=== PATIENT | female | born 1945 | race Caucasian/White ===

== ENCOUNTER 2016-08-31 10:24 | Emergency (ER) | payer OTHER, MEDICARE ==
[~2016-08-31 10:24] MED LIST: COUMADIN2.5 MG PO; COUMADIN5 MG PO; HYDROCORTISONE5 MG PO; LEVEMIR FL100 UNIT/M SC; LISINOPRIL10 MG PO; METOPROLOL TART25 MG PO; NEURONTIN300 MG PO; NITRO-DUR0.4 MG/HR SL; NOVOLOG PE100 UNITS/ SC; PANTOPRAZOLE SO40 MG PO; REGLAN10 MG PO; STOOL SOFTENER1 TA1; SYNTHROID125 MCG PO
--- NOTE | 2016-08-31 12:32 | DIAGNOSTIC IMAGING REPORT ---
PROCEDURE: CT ABDOMEN/PELVIS W/O CONTRAST INDICATION: Right lower quadrant pain x 3 days, initial encounter TECHNIQUE: Noncontrast axial images were obtained of the entire abdomen and pelvis with sagittal and coronal reformations. COMPARISON: CT abdomen/pelvis 10/19/2015 FINDINGS: ABDOMEN: Lung bases are clear. Mild cardiomegaly. Mild splenomegaly (13.3 cm), stable. Cholecystectomy pancreas, adrenal glands and the kidneys are normal. Mild atherosclerosis of the aorta. There is fluid in the ascending colon. PELVIS: Status post appendectomy. Hysterectomy. There is no pelvic mass, inflammatory changes or free fluid. Mild degenerative changes of the spine pill no suspicious osseous lesions IMPRESSION: 1. Fluid in the ascending colon suggestive of enterocolitis 2. Cholecystectomy, appendectomy and hysterectomy. 3. Stable mild splenomegaly 4. Results discussed with Dr. Orosco All CT scans at this facility use dose modulation, iterative reconstruction, and/or weight-based dosing when appropriate to reduce radiation dose to as low as reasonably achievable.
--- NOTE | 2016-08-31 15:14 | ED ORDER SUMMARY ---
..... Patient: SAM MEYERS OrderSheet [facility] VisitID: [id number] [address] [place] [address] 70y, F Registration Date/Time: 08/31/2016 ORDER SHEET Weight: 77.1 kg (stated) Allergies: Septra, Codeine, Zithromax, Iodine, Sulfa Antibiotics, Aredia, Avandia, Cephalexin, CONTRAST DYE, Ibuprofen, Narcotic Pain Medication, Sulfa Antibiotics GENERAL ORDERS: CBC w Diff Urgent (10:43 08/31/2016 HOShaughnessy R.N. per protocol) (Ack 10:50 LTapper) (10:54 HOShaughnessy R.N.) CMP Urgent (:08/31/2016 HOShaughnessy R.N. per protocol) (Ack 10:50 LTapper) (10:54 HOShaughnessy R.N.) PT with INR Urgent (10:08/31/2016 HOShaughnessy R.N. per protocol) (Ack 10:50 LTapper) (10:54 HOShaughnessy R.N.) Amylase Urgent (10:08/31/2016 HOShaughnessy R.N. per protocol) (Ack 10:50 LTapper) (10:54 HOShaughnessy R.N.) Lipase Urgent (10:08/31/2016 HOShaughnessy R.N. per protocol) (Ack 10:50 LTapper) (10:54 HOShaughnessy R.N.) UA-Culture if indicated Urgent (10:08/31/2016 HOShaughnessy R.N. per protocol) (Ack 10:50 LTapper) (13:09 HOShaughnessy R.N.) POC Glucose (10:08/31/2016 HOShaughnessy R.N. per protocol) (10:54 HOShaughnessy R.N.) Vitals (10:08/31/2016 HOShaughnessy R.N. per protocol) (10:54 HOShaughnessy R.N.) NPO (10:08/31/2016 HOShaughnessy R.N. per protocol) (10:54 HOShaughnessy R.N.) - (PANTS OFF PRETTY PLEASE!!!!!!!) (11:09 08/31/2016 Karime KIRBY) (Ack 11:12 LTapper) (11:32 HOShaughlynette R.N.) Lactate, Serum Urgent (11:14 08/31/2016 Karime KIRBY) (Ack 11:16 LTapper) (11:26 HOShaughharshy R.N.) EKG - ER Stat (11:19 08/31/2016 Karime KIRBY) (Ack 11:32 LTapper) (11:33 HOShaughlynette R.N.) CT Abd/Pel w Cont (Yes) (pending ) (wait for labs) Urgent (11:20 08/31/2016 Karime KIRBY) (Ack 11:32 LTapper) (Cancelled: contrast :00 Karime KIRBY) CT Abd/Pel wo Cont Urgent (12:00 08/31/2016 Karime KIRBY) (Ack 12:06 LTapper) MEDICATION ORDERS: - (D50 12.5 gm) (11:13 08/31/2016 Karime KIRBY) (11:26 HOShaughnessy R.N.) IV FLUIDS: IV Saline Lock (10:43 08/31/2016 HOShaughharshy R.N. per protocol) (10:54 HOShaughnessy R.N.) Dilaudid IV 0.5 mg + 0.5 mg (HIGH ALERT MEDICATION) (11:18 08/31/2016 Karime KIRBY) (11:38 HOShaughnessy R.N.) Zofran IV 4 mg (NOW) (11:18 08/31/2016 Karime KIRBY) (11:37 HOShaughharshy R.N.) Benadryl IV 50 mg (NOW) (14:23 08/31/2016 Karime KIRBY) (Cancelled: Other15:08 Karime KIRBY) Haldol IV 3 mg (NOW) (14:24 08/31/2016 Karime KIRBY) (Cancelled: Other15:08 Karime KIRBY) Dilaudid IV 0.5 mg (NOW) (15:09 08/31/2016 Karime KRIBY) (15:22 Jazz Chambers) ORDER SHEET NOTES: [Electronically signed by Pierre Badillo R.N. (00:40 09/01/2016)] [Electronically signed by Naeem Orosco MD (02:36 09/02/2016)] [Electronically locked/signed by Pierre Badillo R.N. (00:40 09/01/2016)]
--- NOTE | 2016-08-31 15:14 | ED NURSING NOTES ---
Clinical Report - Nurses [place] [address] [place] [address] 08/31/2016 10:25 Patient: SAM MEYERS TRIAGE Triage time 1026 AM. Chief Complaint: ABDOMINAL PAIN. Alert. No acute distress. --10:32 Pierre Badillo R.N. 10:26 08/31/16. BP: 146/64. HR: 54. RR: 16. O2 saturation: 97%. Temp: 98.6 F (oral). Pain level now: 05/25. --10:32 Pierre Badillo R.N. ( Blood Sugar:74). --10:44 Pierre Badillo R.N. 14:50 08/31/16. HR: 52. RR: 16. O2 saturation: 96%. --14:52 Pierre Badillo R.N. Weight: 77.1 kg stated. Height/Length: 66 inches Per Patient. BMI: 27.4. --10:27 Pierre Badillo R.N. Medications Levothyroxine Sodium Oral. --10:28 Pierre Badillo R.N. Lisinopril Oral. --10:28 Pierre Badillo R.N. MiraLax Oral. --10:29 Pierre Badillo R.N. Hydrocortisone Oral. --10:29 Pierre Badillo R.N. Gabapentin Oral. --10:29 Pierre Badillo R.N. Multivitamins Oral. --10:29 Pierre Badillo R.N. Nitroglycerin ER Oral. --10:29 Pierre Badillo R.N. Pantoprazole Sodium Oral. --10:30 Pierre Badillo R.N. Metoprolol Tartrate Oral. --10:30 Pierre Badillo R.N. Warfarin Sodium Oral. --10:30 Pierre Badillo R.N. Allergies Septra. --10:30 Pierre Badillo R.N. Codeine. --10:30 Pierre Badillo R.N. Zithromax. --10:31 Pierre Badillo R.N. Iodine. --10:31 Pierre Badillo R.N. Sulfa Antibiotics. --10:31 Pierre Badillo R.N. Aredia. Avandia. Cephalexin. CONTRAST DYE. Ibuprofen. Narcotic Pain Medication. Sulfa Antibiotics. --11:36 Pierre Badillo R.N. History Arrived by EMS. Historian: patient. Unaccompanied. ( Patient presents to the ED with symptoms of lower abdominal pain beginning Wednesday night worsening over the weekend.). She has had nausea, constipation and abdominal pain. 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 SOCIAL HX: Smoker- current status unknown (no). Alcohol use. (no). History of drug use. (no). FALL RISK ASSESSMENT: Fall risk assessment completed. No fall risk identified. NUTRITIONAL RISK ASSESSMENT: The nutritional risk assessment revealed no deficiencies. FUNCTIONAL ASSESSMENT: Functional assessment: no impairments noted. LEARNING NEEDS ASSESSMENT: The learning needs assessment revealed no barriers. SKIN INTEGRITY ASSESSMENT: Skin integrity risk assessment completed. No skin integrity risk identified. --10:32 Pierre Badillo R.N. PROBLEMS: Flank Pain. Hypertension. Myocardial Infarction. Heart Disease. UTI - Urinary Tract Infection. Gallstone(s). Gastroesophageal Reflux Disease. Rectal Bleed. Vomiting. Hypothyroidism. Gastritis. Anxiety Reaction. Atypical Chest Pain. Diarrhea. Abdominal Pain. Epistaxis. Pituitary adenoma. Atrial Fibrillation. Gastroenteritis. Foot Fracture. Immunizations. Brain Tumor. Diabetes Mellitus. --10:31 Pierre Badillo R.N. ADDITIONAL SURGERIES: Ankle surgery. Appendectomy. Brain surgery for tumor 2009. Cholecystectomy. Hysterectomy. Jaw surgery. Knee Surgery. Vein stripping bilateral legs. --10:31 Pierre Badillo R.N. PHYSICAL ASSESSMENT To room via stretcher. GENERAL / NEURO / PSYCH: Alert. Oriented X 4. Appears in no acute distress. HEENT: Mucous membranes are pink. RESPIRATORY: Respirations not labored. Breath sounds within normal limits. CVS: Normal sinus rhythm noted. Capillary refill less than 2 seconds. GI / : Abdominal tenderness in the lower abdomen. Guarding present. Bowel sounds within normal limits. SKIN: Skin is warm and dry. --10:32 Pierre Badillo R.N. NURSING PROGRESS NOTES Call light placed in reach. Side rails up x 1. --10:32 Pierre Badillo R.N. 10:54 08/31/2016 Site #1 started via IV in the left hand with an 20g angiocath; one attempt. Blood drawn: rainbow set. Labeled in the presence of the patient and sent to the lab. Saline lock flushed with 10 mL saline. --10:54 Pierre Badillo R.N. 11:26 08/31/2016 Dextrose 50%-Water IVP 12.5 gm given over 2 minute(s) via site #1. Allergies verified and confirmed 5 rights. IV patency established. IV site checked: no pain, redness, or swelling. IV flushed thoroughly pre- and post-medication administration. IVP given by RN. --11:26 Pierre Badillo R.N. 11:37 08/31/2016 Zofran (Ondansetron HCl) IVP 4 mg given over 2 minute(s) via site #1. Allergies verified and confirmed 5 rights. IV patency established. IV site checked: no pain, redness, or swelling. IV flushed thoroughly pre- and post-medication administration. IVP given by RN. --11:37 Pierre Badillo R.N. 11:38 08/31/2016 Dilaudid (HYDROmorphone HCl PF) IVP 0.5 mg given over 2 hour(s) via site #1. Allergies verified, confirmed 5 rights and sedative warning given to the patient. IV patency established. IV site checked: no pain, redness, or swelling. IV flushed thoroughly pre- and post-medication administration. IVP given by RN. --11:38 Pierre Badillo R.N. The patient is calm and resting quietly. --11:41 Pierre Badillo R.N. 11:40 08/31/16. BP: 153/67. HR: 52. RR: 16. O2 saturation: 97%. Temp: 98.5 F. Pain level now: 05/25. --11:41 Pierre Badillo R.N. Point of care testing: performed by tech. Glucose: 152. Result shown to the RN. --12:01 Amaya Wisdom EKG time: (11:31 AM). EKG was performed by a tech and shown to the ED physician. --12:13 Amaya Wisdom ( Patient able to stand and transfer to bedside commode. Urine sample obtained.). --13:10 Pierre Badillo R.N. 14:18 08/31/16. BP: 144/51 taken on the left arm, via an automated monitor, while lying. HR: 60. RR: 16. O2 saturation: 97%. Temp: 97.9 F (oral). Pain level now: 05/25. --14:19 Pierre Badillo R.N. The patient is calm and resting quietly. Overall patient status is the same- she states feels the same. Call light placed in reach. Side rails up x 1. Bed placed in lowest position. Brakes of bed on. --14:19 Pierre Badillo R.N. 14:50 08/31/2016 Dilaudid (HYDROmorphone HCl PF) IVP 0.5 mg given over 2 minute(s) via site #1. Allergies verified, confirmed 5 rights and sedative warning given to the patient. IV patency established. IV site checked: no pain, redness, or swelling. IV flushed thoroughly pre- and post-medication administration. IVP given by RN. --14:50 Pierre Badillo R.N. ( Patient states that she thinks that she her doctor may have told her that she should not taken Benadryl. Patient states that she is not sure if her doctor told her to avoid Benadryl or is it was another medication and does not know why her doctor may have told her to avoid Benadryl. Physician informed and is at the bedside speaking with patient.). --15:08 Pierre Badillo R.N. 15:21 08/31/2016 Dilaudid (HYDROmorphone HCl PF) IVP 0.5 mg given over 2 minute(s) via site #1. Allergies verified, confirmed 5 rights and sedative warning given to the patient. IV patency established. IV site checked: no pain, redness, or swelling. IV flushed thoroughly pre- and post-medication administration. IVP given by RN. --15:22 Pierre Badillo R.N. Pipe Line Repairer provided for the rectal exam by the physician. ( Rectal exam done by Dr. Orosco). --15:58 YifanCharlie daia. DISPOSITION / DISCHARGE 15:22 08/31/16. BP: 118/49. HR: 49. RR: 16. O2 saturation: 94%. Temp: 98.2 F (oral). Pain level now: 8/10. --15:22 Pierre Badillo R.N. 15:49 08/31/2016 Site #1 removed upon discharge. Catheter intact. Bandaid applied. --15:49 Pierre Badillo R.N. Reviewed medication(s) side effects, precautions, dosing and course information. Prescription(s) given to the patient. Reviewed fever care instructions. Patient verbalized understanding. Written instructions provided in Turkmen. The patient was discharged home and accompanied by spouse. She left the Emergency Department ambulatory and via private vehicle. Spouse driving. --15:49 Pierre Badillo R.N. Departure time: 1549 PM. --15:49 Pierre Badillo R.N. Locked/Released at 09/01/2016 0:40 by Pierre Badillo R.N.
--- NOTE | 2016-08-31 15:14 | ED ORDER SUMMARY ---
..... Patient: SAM MEYERS OrderSheet [facility] VisitID: [id number] [address] [place] [address] 70y, F Registration Date/Time: 08/31/2016 ORDER SHEET Weight: 77.1 kg (stated) Allergies: Septra, Codeine, Zithromax, Iodine, Sulfa Antibiotics, Aredia, Avandia, Cephalexin, CONTRAST DYE, Ibuprofen, Narcotic Pain Medication, Sulfa Antibiotics GENERAL ORDERS: CBC w Diff Urgent (10:43 08/31/2016 HOShaughnessy R.N. per protocol) (Ack 10:50 LTapper) (10:54 HOShaughnessy R.N.) CMP Urgent (:08/31/2016 HOShaughnessy R.N. per protocol) (Ack 10:50 LTapper) (10:54 HOShaughnessy R.N.) PT with INR Urgent (10:08/31/2016 HOShaughnessy R.N. per protocol) (Ack 10:50 LTapper) (10:54 HOShaughnessy R.N.) Amylase Urgent (10:08/31/2016 HOShaughnessy R.N. per protocol) (Ack 10:50 LTapper) (10:54 HOShaughnessy R.N.) Lipase Urgent (10:08/31/2016 HOShaughnessy R.N. per protocol) (Ack 10:50 LTapper) (10:54 HOShaughnessy R.N.) UA-Culture if indicated Urgent (10:08/31/2016 HOShaughnessy R.N. per protocol) (Ack 10:50 LTapper) (13:09 HOShaughnessy R.N.) POC Glucose (10:08/31/2016 HOShaughnessy R.N. per protocol) (10:54 HOShaughnessy R.N.) Vitals (10:08/31/2016 HOShaughnessy R.N. per protocol) (10:54 HOShaughnessy R.N.) NPO (10:08/31/2016 HOShaughnessy R.N. per protocol) (10:54 HOShaughnessy R.N.) - (PANTS OFF PRETTY PLEASE!!!!!!!) (11:09 08/31/2016 Karime KIRBY) (Ack 11:12 LTapper) (11:32 HOShaughlynette R.N.) Lactate, Serum Urgent (11:14 08/31/2016 Karime KIRBY) (Ack 11:16 LTapper) (11:26 HOShaughharshy R.N.) EKG - ER Stat (11:19 08/31/2016 Karime KIRBY) (Ack 11:32 LTapper) (11:33 HOShaughlynette R.N.) CT Abd/Pel w Cont (Yes) (pending ) (wait for labs) Urgent (11:20 08/31/2016 Kraime KIRBY) (Ack 11:32 LTapper) (Cancelled: contrast [id number] Karime KIRBY) CT Abd/Pel wo Cont Urgent (12:00 08/31/2016 Karime KIRBY) (Ack 12:06 LTapper) MEDICATION ORDERS: - (D50 12.5 gm) (11:13 08/31/2016 Karime KIRBY) (11:26 HOShaughnessy R.N.) IV FLUIDS: IV Saline Lock (10:43 08/31/2016 HOShaughharshy R.N. per protocol) (10:54 HOShaughnessy R.N.) Dilaudid IV 0.5 mg + 0.5 mg (HIGH ALERT MEDICATION) (11:18 08/31/2016 Karime KIRBY) (11:38 HOShaughnessy R.N.) Zofran IV 4 mg (NOW) (11:18 08/31/2016 Karime KIRBY) (11:37 HOShaughharshy R.N.) Benadryl IV 50 mg (NOW) (14:23 08/31/2016 Karime KIRBY) (Cancelled: Other15:08 Karime KIRBY) Haldol IV 3 mg (NOW) (14:24 08/31/2016 Karime KIRBY) (Cancelled: Other15:08 Karime KIRBY) Dilaudid IV 0.5 mg (NOW) (15:09 08/31/2016 Karime KIRBY) (15:22 Jzaz Chambers) ORDER SHEET NOTES: [Electronically signed by Pierre Badillo R.N. (00:40 09/01/2016)] [Electronically signed by Naeem Orosco MD (02:36 09/02/2016)] [Electronically locked/signed by Pierre Badillo R.N. (00:40 09/01/2016)]
--- NOTE | 2016-08-31 15:14 | ED CLINICAL REPORT ---
Clinical Report - Physicians/Mid Levels [facility] [address] [place] [address] 08/31/2016 10:25 Patient: SAM MEYERS Time Seen: 11:10. Arrived- By private vehicle. HISTORY OF PRESENT ILLNESS Chief Complaint: ABDOMINAL PAIN. At its maximum, severity described as severe. When seen in the E.D., severity described as moderate. Modifying factors. Not worsened by anything. Not relieved by anything. This started 5 days ago and is still present. It was gradual in onset and has been constant. It is described as "pain" and it is described as located in the right pelvis and in the pelvic area. The patient has had nausea. No vomiting. Similar symptoms previously: Several times. ( Unknown cause). REVIEW OF SYSTEMS The patient has had constipation. No fever, double vision, ear pain, mouth sores or chest pain. No cough, difficulty breathing or difficulty with urination. PAST HISTORY PCP: Chente MARTE IlPROBLEMS: Flank Pain. Hypertension. Myocardial Infarction. Heart Disease. UTI - Urinary Tract Infection. Gallstone(s). Gastroesophageal Reflux Disease. Rectal Bleed. Vomiting. Hypothyroidism. Gastritis. Anxiety Reaction. Atypical Chest Pain. Diarrhea. Abdominal Pain. Epistaxis. Pituitary adenoma. Atrial Fibrillation. Gastroenteritis. Foot Fracture. Immunizations. Brain Tumor. Diabetes Mellitus. --10:31 Pierre Badillo, RMauroN. ADDITIONAL SURGERIES: Ankle surgery. Appendectomy. Brain surgery for tumor 2009. Cholecystectomy. Hysterectomy. Jaw surgery. Knee Surgery. Vein stripping bilateral legs. SOCIAL HISTORY Never smoker. ADDITIONAL NOTES The nursing notes have been reviewed. PHYSICAL EXAM Vital Signs: 08/31/2016 15:22 BP: 118/49. HR: 49. RR: 16. O2 saturation: 94%. Temp: 98.2 F. Pain level now: 03/25. 08/31/2016 14:50 HR: 52. RR: 16. O2 saturation: 96%. 08/31/2016 14:18 BP: 144/51. HR: 60. RR: 16. O2 saturation: 97%. Temp: 97.9 F. Pain level now: 05/25. 08/31/2016 11:40 BP: 153/67. HR: 52. RR: 16. O2 saturation: 97%. Temp: 98.5 F. Pain level now: 05/25. 08/31/2016 10:26 BP: 146/64. HR: 54. RR: 16. O2 saturation: 97%. Temp: 98.6 F. Pain level now: 05/25. Appearance: Alert. Patient in mild distress. Eyes: Pupils equal, round and reactive to light. Eyes normal inspection. ENT: Pharynx normal. CVS: Heart sounds normal. Respiratory: No respiratory distress. Breath sounds normal. Abdomen: Mild tenderness in the right lower quadrant. Guarding present. Bowel sounds normal. No rebound tenderness. (No hernias). Back: No CVA tenderness. Skin: No rash. Extremities: Extremities exhibit normal ROM. No lower extremity edema. Neuro: No alteration in mental status. LABS, X-RAYS, AND EKG Abdominal CT: PROCEDURE: CT ABDOMEN/PELVIS W/O CONTRAST INDICATION: Right lower quadrant pain x 3 days, initial encounter TECHNIQUE: Noncontrast axial images were obtained of the entire abdomen and pelvis with sagittal and coronal reformations. COMPARISON: CT abdomen/pelvis 10/19/2015 FINDINGS: ABDOMEN: Lung bases are clear. Mild cardiomegaly. Mild splenomegaly (13.3 cm), stable. Cholecystectomy pancreas, adrenal glands and the kidneys are normal. Mild atherosclerosis of the aorta. There is fluid in the ascending colon. PELVIS: Status post appendectomy. Hysterectomy. There is no pelvic mass, inflammatory changes or free fluid. Mild degenerative changes of the spine pill no suspicious osseous lesions IMPRESSION: 1. Fluid in the ascending colon suggestive of enterocolitis 2. Cholecystectomy, appendectomy and hysterectomy. 3. Stable mild splenomegaly 4. Results discussed with Dr. Orosco All CT scans at this facility use dose modulation, iterative reconstruction, and/or weight-based dosing when appropriate to reduce radiation dose to as low as reasonably achievable. Laboratory Tests: UA-Culture if indicated: (BILLIE: 08/31/2016 13:06) ( MsgRcvd 08/31/2016 13:40) Final results Test Result Flag Units (Reference) URINE COLOR YELLOW URINE APPEARANCE CLEAR URINE GLUCOSE NEGATIVE (NEGATIVE) URINE BILIRUBIN NEGATIVE (NEGATIVE) URINE KETONE NEGATIVE (NEGATIVE) URINE SPECIFIC GRAVITY 1.015 (1.010-1.030) URINE PH 6.0 (5.0-8.0) URINE PROTEIN NEGATIVE (NEGATIVE) URINE UROBILINOGEN 0.2 EU/dL (0.2-1.0) URINE NITRITE NEGATIVE (NEGATIVE) URINE BLOOD NEGATIVE (NEGATIVE) URINE LEUK ESTERASE NEGATIVE (NEGATIVE) URINE RBC NONE SEEN rbc/hpf (0-1) URINE WBC NONE SEEN wbc/hpf (0-1) URINE EPITHELIAL CELLS 0-1 EPI/hpf (0-5) URINE BACTERIA NONE SEEN (NONE SEEN) URINE COMMENT CULT NOT INDICATED URINE CULTURES ARE SET-UP BASED ON THE FOLLOWING CRITERIA:POSITIVE NITRITEPOSITIVE LEUKOCYTE ESTERASEGREATER THAN 10 WHITE BLOOD CELLSMODERATE (2+) OR GREATER BACTERIA CBC w Diff: (BILLIE: 08/31/2016 10:52) ( [facility] 08/31/2016 11:13) Final results Test Result Flag Units (Reference) WHITE BLOOD COUNT 9.5 K/uL (4.5-11.5) RED BLOOD COUNT 4.81 M/uL (4.00-5.20) HEMOGLOBIN 15.6 gm/dL (12.0-16.0) HEMATOCRIT 46.7 H % (36.0-46.0) MEAN CELL VOLUME 97 fL (80-100) MEAN CORPUSCULAR HGB 33 pg (26-34) MEAN CORPUSCULAR HGB CONC 33 g/dL (31-37) RED CELL DISTRIBUTION WIDTH 13.1 % (11.6-14.8) PLATELET COUNT 221 K/uL (150-400) LYMPH % 14.3 L % (25-40) MONO % 2.3 L % (3-14) GRANULOCYTE % 83.4 (53-90) PT with INR: (BILLIE: 08/31/2016 10:52) ( [facility] 08/31/2016 11:15) Final results Test Result Flag Units (Reference) INR 1.7 H (0.8-1.2) Low Intensity Therapy: INR 1.5-2.0 PT range 18.5-23.1Mod.Intensity Therapy: INR 2.0-3.0 PT range 23.1-31.5High Intensity Therapy: INR 2.5-3.5 PT range 27.4-35.5High Intensity Therapy 2: INR 3.0-4.0 PT range 31.5-39.3 Lactate, Serum: (BILLIE: 08/31/2016 11:24) ( CtgRcvd 08/31/2016 12:02) Final results Test Result Flag Units (Reference) LACTIC ACID 0.8 mmol/L (0.4-2.0) CMP: (BILLIE: 08/31/2016 10:52) ( MsgRcvd 08/31/2016 11:24) Final results Test Result Flag Units (Reference) GLUCOSE 91 mg/dL (70-110) BUN 19 H mg/dL (7-18) CREATININE 1.0 mg/dL (0.6-1.3) Estimated GFR 58.43 mL/min Estimated GFR- >60 mL/min Note: Persistent reduction over 3 months in eGFR<60 mL/min/1.73 m2 defines CKD. Patients with eGFR values>=60 mL/min/1.73 m2 may also have CKD if evidence ofpersistent proteinuria. Additional information may be foundat www.kidney.org. SODIUM 141 mmol/L (136-145) POTASSIUM 3.6 mmol/L (3.5-5.1) CHLORIDE 106 mmol/L (98-107) CARBON DIOXIDE 29 mmol/L (21-32) CALCIUM 8.0 L mg/dL (8.5-10.1) TOTAL PROTEIN 7.0 g/dL (6.4-8.2) ALBUMIN 3.0 L g/dL (3.3-5.0) BILIRUBIN, TOTAL 0.7 mg/dL (0.0-1.0) ALKALINE PHOSPHATASE 70 U/L (46-116) AST (SGOT) 33 U/L (15-37) ALT (SGPT) 29 U/L (12-78) LIPASE 140 U/L (73-393) AMYLASE 32 U/L (25-115) . PROGRESS AND PROCEDURES Course of Care: Low normal blood sugar treated with dextrose IV. 14:13 08/31/16. Labs and CT Normal. Still quite tender. NSR 14:22 08/31/16. Pt given Dilaudid and Zofran with fair relief relief. The patient does not appear to have an acute surgical abdomen. The cause of her pain is unclear. A follow-up in 12 hours if needed for unrelieved pain is the appropriate next step. Disposition: Discharged. Condition: stable. CLINICAL IMPRESSION Acute abdominal pain of unknown cause. INSTRUCTIONS (RECHECK IN 12 OURS IF PAIN OR VOMITING PERSISTS.). Prescription Medications: Zofran 4 mg: Take 1 orally every six hours as needed for nausea/vomiting. Dispense ten (10). No refills. Substitution is permissible. Oxycodone/APAP 5 mg/325 mg: take 1 tablet orally every 4 hours as needed for pain. Dispense five (5). Follow-up: Follow up with doctor SOLORZANO in three. Call for an appointment. Understanding of the discharge instructions verbalized by patient. (Electronically signed by Naeem Orosco MD 09/02/2016 2:36)
--- NOTE | 2016-09-02 02:37 | ED MAR SUMMARY ---
..... Medication Administration Record [facility] [address] [facility] [place] [address] Patient: SAM MEYERS Visit ID: [id number] 70y, F Weight: 77.1 kg Height/Length: 66 in BMI: 27.4 ALLERGIES: Sulfa Antibiotics, Iodine, Zithromax, Codeine, Septra, Aredia, Avandia, Cephalexin, CONTRAST DYE, Ibuprofen, Narcotic Pain Medication, Sulfa Antibiotics Given 11:26 08/31/2016 Pierre Badillo R.N. Medication Administered: DEXTROSE 50%-WATER [IVP], Dose: 12.5 gm IVP over 2 minute(s), Site: #1 left hand. Medication Ordered: - (D50 12.5 gm). Given 11:37 08/31/2016 Pierre Badillo R.N. Medication Administered: ZOFRAN [IVP] (ONDANSETRON HCL), Dose: 4 mg IVP over 2 minute(s), Site: #1 left hand. Medication Ordered: Zofran IV 4 mg (NOW). Given 11:38 08/31/2016 Pierre Badillo R.N. Medication Administered: DILAUDID [IVP] (HYDROMORPHONE HCL PF), Dose: 0.5 mg IVP over 2 hour(s), Site: #1 left hand. Medication Ordered: Dilaudid IV 0.5 mg + 0.5 mg (HIGH ALERT MEDICATION). Given 14:50 08/31/2016 Pierre Badillo R.N. Medication Administered: DILAUDID [IVP] (HYDROMORPHONE HCL PF), Dose: 0.5 mg IVP over 2 minute(s), Site: #1 left hand. Medication Ordered: Dilaudid IV 0.5 mg + 0.5 mg (HIGH ALERT MEDICATION). Given 15:21 08/31/2016 Pierre Badillo R.N. Medication Administered: DILAUDID [IVP] (HYDROMORPHONE HCL PF), Dose: 0.5 mg IVP over 2 minute(s), Site: #1 left hand. Medication Ordered: Dilaudid IV 0.5 mg (NOW).
--- NOTE | 2016-09-02 02:37 | ED MED RECONCILIATION SUMMARY ---
Patient: SAM MEYERS Medication Reconciliation Report [facility] VisitID: [id number] [address] [place] [address] 70y, F Registration Date/Time: 08/31/2016 Weight: 77.1 kg Height/Length: 66 in. BMI: 27.4 ALLERGIES: Aredia, Avandia, Cephalexin, Codeine, CONTRAST DYE, Ibuprofen, Iodine, Narcotic Pain Medication, Septra, Sulfa Antibiotics, Sulfa Antibiotics, Zithromax The patient's Home Medications are listed below: THE FOLLOWING MEDICATIONS NEED TO BE RECONCILED: Gabapentin Oral Hydrocortisone Oral Levothyroxine Sodium Oral Lisinopril Oral Metoprolol Tartrate Oral MiraLax Oral Multivitamins Oral Nitroglycerin ER Oral Pantoprazole Sodium Oral Warfarin Sodium Oral The source(s) of the original Home Medication information: Not obtained. The following Medications were given to the patient in the Emergency Department: Dextrose 50%-Water [IVP] IVP 12.5 gm, administered: 08/31/2016 11:26:00 AM Zofran [IVP] IVP 4 mg, administered: 08/31/2016 11:37:00 AM Dilaudid [IVP] IVP 0.5 mg, administered: 08/31/2016 11:38:00 AM Dilaudid [IVP] IVP 0.5 mg, administered: 08/31/2016 2:50:00 PM Dilaudid [IVP] IVP 0.5 mg, administered: 08/31/2016 3:21:00 PM The following Medications were prescribed to the patient: Zofran 4 mg: Take 1 orally every six hours as needed for nausea/vomiting. Dispense ten (10). No refills. Substitution is permissible. -- Naeem Orosco MD Oxycodone/APAP 5 mg/325 mg: take 1 tablet orally every 4 hours as needed for pain. Dispense five (5). -- Naeem Orosco MD
--- NOTE | 2016-09-02 02:37 | ED MAR SUMMARY ---
..... Medication Administration Record [facility] [address] [facility] [place] [address] Patient: SAM MEYERS Visit ID: [id number] 70y, F Weight: 77.1 kg Height/Length: 66 in BMI: 27.4 ALLERGIES: Sulfa Antibiotics, Iodine, Zithromax, Codeine, Septra, Aredia, Avandia, Cephalexin, CONTRAST DYE, Ibuprofen, Narcotic Pain Medication, Sulfa Antibiotics Given 11:26 08/31/2016 Pierre Badillo R.N. Medication Administered: DEXTROSE 50%-WATER [IVP], Dose: 12.5 gm IVP over 2 minute(s), Site: #1 left hand. Medication Ordered: - (D50 12.5 gm). Given 11:37 08/31/2016 Pierre Badillo R.N. Medication Administered: ZOFRAN [IVP] (ONDANSETRON HCL), Dose: 4 mg IVP over 2 minute(s), Site: #1 left hand. Medication Ordered: Zofran IV 4 mg (NOW). Given 11:38 08/31/2016 Pierre Badillo R.N. Medication Administered: DILAUDID [IVP] (HYDROMORPHONE HCL PF), Dose: 0.5 mg IVP over 2 hour(s), Site: #1 left hand. Medication Ordered: Dilaudid IV 0.5 mg + 0.5 mg (HIGH ALERT MEDICATION). Given 14:50 08/31/2016 Pierre Badillo R.N. Medication Administered: DILAUDID [IVP] (HYDROMORPHONE HCL PF), Dose: 0.5 mg IVP over 2 minute(s), Site: #1 left hand. Medication Ordered: Dilaudid IV 0.5 mg + 0.5 mg (HIGH ALERT MEDICATION). Given 15:21 08/31/2016 Pierre Badillo R.N. Medication Administered: DILAUDID [IVP] (HYDROMORPHONE HCL PF), Dose: 0.5 mg IVP over 2 minute(s), Site: #1 left hand. Medication Ordered: Dilaudid IV 0.5 mg (NOW).
--- NOTE | 2016-09-02 02:37 | ED MED RECONCILIATION SUMMARY ---
Patient: SAM MEYERS Medication Reconciliation Report [facility] VisitID: [id number] [address] [place] [address] 70y, F Registration Date/Time: 08/31/2016 Weight: 77.1 kg Height/Length: 66 in. BMI: 27.4 ALLERGIES: Aredia, Avandia, Cephalexin, Codeine, CONTRAST DYE, Ibuprofen, Iodine, Narcotic Pain Medication, Septra, Sulfa Antibiotics, Sulfa Antibiotics, Zithromax The patient's Home Medications are listed below: THE FOLLOWING MEDICATIONS NEED TO BE RECONCILED: Gabapentin Oral Hydrocortisone Oral Levothyroxine Sodium Oral Lisinopril Oral Metoprolol Tartrate Oral MiraLax Oral Multivitamins Oral Nitroglycerin ER Oral Pantoprazole Sodium Oral Warfarin Sodium Oral The source(s) of the original Home Medication information: Not obtained. The following Medications were given to the patient in the Emergency Department: Dextrose 50%-Water [IVP] IVP 12.5 gm, administered: 08/31/2016 11:26:00 AM Zofran [IVP] IVP 4 mg, administered: 08/31/2016 11:37:00 AM Dilaudid [IVP] IVP 0.5 mg, administered: 08/31/2016 11:38:00 AM Dilaudid [IVP] IVP 0.5 mg, administered: 08/31/2016 2:50:00 PM Dilaudid [IVP] IVP 0.5 mg, administered: 08/31/2016 3:21:00 PM The following Medications were prescribed to the patient: Zofran 4 mg: Take 1 orally every six hours as needed for nausea/vomiting. Dispense ten (10). No refills. Substitution is permissible. -- Naeem Orosco MD Oxycodone/APAP 5 mg/325 mg: take 1 tablet orally every 4 hours as needed for pain. Dispense five (5). -- Naeem Orosco MD
--- NOTE | 2016-09-02 02:37 | ED DISCHARGE INSTRUCTIONS ---
Patient: SAM MEYERS General Instructions [facility] VisitID: [id number] [address] [place] [address] 70y, F Registration Date/Time: 08/31/2016 Acute abdominal pain of unknown cause. INSTRUCTIONS (RECHECK IN 12 OURS IF PAIN OR VOMITING PERSISTS.). Prescription Medications: Zofran 4 mg: Take 1 orally every six hours as needed for nausea/vomiting. Dispense ten (10). No refills. Substitution is permissible. Oxycodone/APAP 5 mg/325 mg: take 1 tablet orally every 4 hours as needed for pain. Dispense five (5). Follow-up: Follow up with doctor SOLORZANO in three. Call for an appointment. Understanding of the discharge instructions verbalized by patient. ADDITIONAL INFORMATION Abdominal Pain, Unknown Cause (Female) The exact cause of your abdominal (stomach) pain is not certain. This does not mean that this is something to worry about, or the right tests were not done. Everyone likes to know the exact cause of the problem, but sometimes with abdominal pain, there is no clear-cut cause, and this could be a good thing. The good news is that your symptoms can be treated, and you will feel better. Your condition does not seem serious now; however, sometimes the signs of a serious problem may take more time to appear. For this reason,it is important for you to watch for any new symptoms, problems,or worsening of your condition. Over the next few days, the abdominal pain may come and go, or be continuous. Other common symptoms can include nausea and vomiting. Sometimes it can be difficult to tell if you feel nauseous, you may just feel bad and not associate that feeling with nausea. Constipation, diarrhea, and a fever may go along with the pain. The pain may continue even if treated correctly over the following days. Depending on how things go, sometimes the cause can become clear and may require further or different treatment. Additional evaluations, medications, or tests may be needed. Home care Your health care provider may prescribe medications for pain, symptoms, or an infection. Follow the health care provider's instructions for taking these medications. General care Rest until your next exam. No strenuous activities. Try to find positions that ease discomfort. A small pillow placed on the abdomen may help relieve pain. Something warm on your abdomen (such as a heating pad) may help, but be careful not to burn yourself. Diet Do not force yourself to eat, especially if having cramps, vomiting, or diarrhea. Water is important so you do not get dehydrated. Soup may also be good. Sports drinks may also help, especially if they are not too acidic. Make sure you don't drink sugary drinks as this can make things worse. Take liquids in small amounts. Do not guzzle them. Caffeine sometimes makes the pain and cramping worse. Avoid dairy products if you have vomiting or diarrhea. Don't eat large amounts at a time. Wait a few minutes between bites. Eat a diet low in fiber (called a low-residue diet). Foods allowed include refined breads, white rice, fruit and vegetable juices without pulp, tender meats. These foods will pass more easily through the intestine. Avoid whole-grain foods, whole fruits and vegetables, meats, seeds and nuts, fried or fatty foods, dairy, alcohol and spicy foods until your symptoms go away. Follow-up care Follow up with your health care provider as instructed, or if your pain does not begin to improve in the next 24 hours. When to seek medical care Seek prompt medical care if any of the following occur: Pain gets worse or moves to the right lower abdomen New or worsening vomiting or diarrhea Swelling of the abdomen Unable to pass stool for more than three days Fever of 100.4F (38C) or higher, or as directed by your healthcare provider. Blood in vomit or bowel movements (dark red or black color) Jaundice (yellow color of eyes and skin) Weakness, dizziness Chest, arm, back, neck or jaw pain Unexpected vaginal bleeding or missed period Call 911 Call emergency services if any of the following occur: Trouble breathing Confusion Fainting or loss of consciousness Rapid heart rate Seizure You have been given the following additional information: Abdominal Pain, Unknown Cause, (Female) (Electronically signed by Naeem Orosco MD 09/02/2016 2:36)
== END 2016-08-31 16:21 | disposition home or self-care (01) ==
LOC: ED SRH 10:24
DX: R10.9 Unspecified abdominal pain (principal); I11.9 Hypertensive heart disease without heart failure; I51.9 Heart disease, unspecified; E11.9 Type 2 diabetes mellitus without complications; K21.9 Gastro-esophageal reflux disease without esophagitis; Z79.01 Long term (current) use of anticoagulants; Z85.841 Personal history of malignant neoplasm of brain; Z85.858 Personal history of malignant neoplasm of other endocrine glands; Z90.49 Acquired absence of other specified parts of digestive tract; Z90.710 Acquired absence of both cervix and uterus
CPT/HCPCS: 90004; 90100; 92031; 92235; 92530; 94060; 95059

== ENCOUNTER 2016-09-01 09:53 | Emergency (ER) | payer OTHER, MEDICARE ==
--- NOTE | 2016-09-01 11:11 | ED NURSING NOTES ---
Clinical Report - Nurses [facility] [address] [place] [address] 09/01/2016 9:53 [id number] TRI[facility] Triage time 10:12. Acuity: LEVEL 3. Chief Complaint: ABDOMINAL PAIN and (Seen here yesterday for the same.). Alert. No acute distress. SEPSIS SCREEN: Sepsis Screen: negative. Negative (no infection suspected/documented). EUGENIO COMA SCORE: Eugenio Coma Scale: 15- eyes open spontaneously (4); best verbal response- oriented x 4 (5); best motor response- obeys commands (6). --10:28 Sana Albrecht R.N. 10:12 09/01/16. BP: 114/58. HR: 56. RR: 16. O2 saturation: 99%. Temp: 97.5 F. Pain level now: 05/25. --10:28 Sana Albrecht R.N. 10:12 09/01/16. BP: 114/58. HR: 56. RR: 16. O2 saturation: 99%. Temp: 97.5 F. Pain level now: 05/25. --10:29 Sana Albrecht R.N. Weight: 80.7 kg stated. Height/Length: 66 inches Per Patient. BMI: 28.7. --10:23 Sana Albrecht R.N. Medications Gabapentin Oral. Hydrocortisone Oral. Levothyroxine Sodium Oral. Lisinopril Oral. Metoprolol Tartrate Oral. MiraLax Oral. Multivitamins Oral. Nitroglycerin ER Oral. Pantoprazole Sodium Oral. Warfarin Sodium Oral. --10:12 Sana Albrecht R.N. Percocet 5mg prn. --10:27 Sana Albrecht R.N. Zofran 4mg prn. --10:28 Sana Albrecht R.N. Medication/allergy information source: the patient. --10:28 Sana Albrecht R.N. Allergies Aredia. Avandia. Cephalexin. Codeine. CONTRAST DYE. --10:12 Sana Albrecht R.N. Ibuprofen. Iodine. Narcotic Pain Medication. Septra. Sulfa Antibiotics. Sulfa Antibiotics. Zithromax. --10:12 Sana Albrecht R.N. History Arrived by private vehicle. Historian: patient and family. This is a recurrent problem. (since wednesday). She has had abdominal pain. The pain is described as located in the RLQ. Last oral intake by patient was breakfast today. Treatment TOOL PLANNER: None. PAST MEDICAL HX: Immunizations: status is unknown. SOCIAL HX: Never smoker. No alcohol use or drug use. No recent travel. No known contact with a sick individual. FALL RISK ASSESSMENT: Fall risk assessment completed. No fall risk identified. NUTRITIONAL RISK ASSESSMENT: The nutritional risk assessment revealed no deficiencies. FUNCTIONAL ASSESSMENT: Functional assessment: no impairments noted. LEARNING NEEDS ASSESSMENT: The learning needs assessment revealed no barriers. SKIN INTEGRITY ASSESSMENT: Skin integrity risk assessment completed. No skin integrity risk identified. --10:28 Sana Albrecht R.N. PROBLEMS: Flank Pain. Hypertension. Myocardial Infarction. Heart Disease. UTI - Urinary Tract Infection. Gallstone(s). Gastroesophageal Reflux Disease. Rectal Bleed. Vomiting. Hypothyroidism. Gastritis. Anxiety Reaction. Atypical Chest Pain. Diarrhea. Abdominal Pain. Epistaxis. Pituitary adenoma. Atrial Fibrillation. Gastroenteritis. Foot Fracture. Immunizations. Brain Tumor. Diabetes Mellitus. --10:13 Sana Albrecht R.N. ADDITIONAL SURGERIES: Ankle surgery. Appendectomy. Brain surgery for tumor 2009. Cholecystectomy. Hysterectomy. Jaw surgery. Knee Surgery. Vein stripping bilateral legs. --10:13 Sana Albrecht R.N. Interventions ID band on patient. To room. --10:28 Sana Albrecht R.N. PHYSICAL ASSESSMENT To room via wheelchair. Patient gowned. GENERAL / NEURO / PSYCH: Alert. Oriented X 4. Appears in no acute distress. HEENT: Mucous membranes are pink. RESPIRATORY: Respirations not labored. CVS: Capillary refill less than 2 seconds. GI / : Abdominal tenderness in the right lower quadrant. SKIN: Skin is warm and dry. --10:29 Sana Albrecht R.N. NURSING PROGRESS NOTES Pulse oximeter and NIBP monitor placed on patient; monitor alarms on. Patient gowned. Head of bed elevated. Two patient identifiers checked. Call light placed in reach. Side rails up x 2. Bed placed in lowest position. Brakes of bed on. Patient ready for evaluation. --10:29 Sana Albrecht R.N. Patient ID band checked for patient name: patient confirmed. Instructions provided to collect clean catch urine and patient verbalized understanding. Clean catch urine collected with return of yellow-colored clear urine; sample sent to lab for urinalysis and culture. Specimen labeled in the presence of the patient. --10:30 Sana Albrecht R.N. 11:21 09/01/2016 Dilaudid (HYDROmorphone HCl PF) IM 1 mg given. Given in the right deltoid. Allergies verified, confirmed 5 rights and sedative warning given to the patient and patient's family. --11:24 Sana Albrecht R.N. 11:23 09/01/2016 Phenergan (Promethazine HCl) PO 25 mg given. Allergies verified, confirmed 5 rights and sedative warning given to the patient and patient's family. --11:23 Sana Albrecht R.N. DISPOSITION / DISCHARGE 11:30 09/01/16. Condition at departure: improved. No learning barriers present. Discharge instructions provided and reviewed with the patient and spouse. Patient and spouse verbalized understanding. Written instructions provided in Japanese. The patient was discharged home and accompanied by spouse. She left the Emergency Department in a wheelchair and via private vehicle. Spouse driving. Medication list reviewed and validated. --11:30 Sana Albrecht R.N. 11:24 09/01/16. BP: 116/76. HR: 63. RR: 16. O2 saturation: 99% on room air. Temp: deferred. Pain level now: 12/23. 10:12 09/01/16. BP: 114/58. HR: 56. RR: 16. O2 saturation: 99%. Temp: 97.5 F. Pain level now: 05/25. --11:30 Sana Albrecht R.N. Locked/Released at 09/01/2016 17:36 by Sana Albrecht R.N.
--- NOTE | 2016-09-01 11:11 | ED ORDER SUMMARY ---
..... Patient: SAM MEYERS OrderSheet [facility] VisitID: [id number] [place] [address] 70y, F Registration Date/Time: 09/01/2016 ORDER SHEET Weight: 80.7 kg (stated) Allergies: Aredia, Avandia, Cephalexin, Codeine, CONTRAST DYE, Ibuprofen, Iodine, Narcotic Pain Medication, Septra, Sulfa Antibiotics, Sulfa Antibiotics, Zithromax GENERAL ORDERS: CBC w Diff Urgent (10:46 09/01/2016 Divina Cervantes) (Cancelled: Verbal per [id number] SRoberts R.N.) CMP Urgent (10:46 09/01/2016 Divina Cervantes) (Cancelled: Verbal per Rywtxovbs20:13 SRoberts R.N.) UA-Culture if indicated Urgent (10:46 09/01/2016 Divina Cervantes) (Cancelled: Verbal per Ockzzipim36:13 SRoberts R.N.) Lipase Urgent (10:46 09/01/2016 Divina Cervantes) (Cancelled: Verbal per Fjhygzcao47:13 SRoberts R.N.) Lactate, Serum Urgent (10:46 09/01/2016 Divina Cervantes) (Cancelled: Verbal per Lsyjakeoa82:13 SRoberts R.N.) Pulse oximeter (10:46 09/01/2016 Divina Cervantes) (10:54 SRoberts R.N.) MEDICATION ORDERS: Dilaudid IM 1 mg (HIGH ALERT MEDICATION, NOW) (11:09/01/2016 Divina Cervantes) (Ack 11:14 SRoberts R.N.) (11:24 SRoberts R.N.) Zofran ODT PO 4 mg (NOW) (11:09/01/2016 Divina Cervantes) (Cancelled: Duplicate Order11:09 Divina Cervantes) Phenergan PO 25 mg (HIGH ALERT MEDICATION, NOW) (11:09/01/2016 Divina Cervantes) (Ack 11:14 SRoberts R.N.) (11:23 SRoberts R.N.) IV FLUIDS: IV NS : initial bolus 500 mL (1000 mL/hr), then none - for X1 (NOW) (10:45 09/01/2016 Divina Cervantes) (Ack 10:55 Yvonne R.NMauro) (Cancelled: Verbal per [id number]:13 Yvonne RTeresa) ORDER SHEET NOTES: [Electronically signed by Sana Albrecht R.N. (17:36 09/01/2016)] [Electronically signed by Hero Lay Dr. (21:40 09/04/2016)] [Electronically locked/signed by Sana Albrecht R.N. (17:36 09/01/2016)]
--- NOTE | 2016-09-01 11:11 | ED CLINICAL REPORT ---
Clinical Report - Physicians/Mid Levels [facility] [address] [place] [address] 09/01/2016 9:53 Patient: SAM MEYERS Arrived- By private vehicle. Historian- patient. HISTORY OF PRESENT ILLNESS Chief Complaint: ABDOMINAL PAIN. At its maximum, severity described as moderate. When seen in the E.D., severity described as moderate. Modifying factors- worsened by movement. Relieved by rest. This started since this wednesday and is still present (staying the same). It was abrupt in onset and has been constant but is not gone now. No radiation. It is described as located in the right flank. No nausea, loss of appetite, vomiting or diarrhea. No additional abdominal pain. No recent travel. Similar symptoms previously: Recent medical care: The patient was seen recently in the emergency department (earlier today). REVIEW OF SYSTEMS No chest pain or difficulty breathing. All systems otherwise negative, except as recorded above. PAST HISTORY See nurses notes. Medications: Zofran 4mg prn. Percocet 5mg prn. Gabapentin Oral. Hydrocortisone Oral. Levothyroxine Sodium Oral. Lisinopril Oral. Metoprolol Tartrate Oral. MiraLax Oral. Multivitamins Oral. Nitroglycerin ER Oral. Pantoprazole Sodium Oral. Warfarin Sodium Oral. Allergies: Aredia. Avandia. Cephalexin. Codeine. CONTRAST DYE. Ibuprofen. Iodine. Narcotic Pain Medication. Septra. Sulfa Antibiotics. Sulfa Antibiotics. Zithromax. SOCIAL HISTORY Never smoker. No alcohol use or drug use. No recent travel. Is a local resident. ADDITIONAL NOTES The nursing notes have been reviewed. PHYSICAL EXAM Vital Signs: 09/01/2016 10:12 BP: 114/58. HR: 56. RR: 16. O2 saturation: 99%. Temp: 97.5 F. Pain level now: 10/10. Blood pressure normal. Oxygen saturation normal. Appearance: Alert. Oriented X3. No acute distress. Eyes: Pupils equal, round and reactive to light. Eyes normal inspection. ENT: Ears normal. Nose normal. Pharynx normal. CVS: Normal heart rate and rhythm. Heart sounds normal. Pulses normal. Respiratory: No respiratory distress. Breath sounds normal. Chest nontender. Abdomen: Soft and nontender. Bowel sounds normal. No organomegaly. No mass. Back: Normal inspection. Skin: Skin warm and dry. Normal skin color. No rash. Normal skin turgor. Extremities: Extremities exhibit normal ROM. No lower extremity edema. LABS, X-RAYS, AND EKG Laboratory Tests: UA-Culture if indicated: (BILLIE: 09/01/2016 10:46) ( MsgRcvd 09/01/2016 11:06) Final results Test Result Flag Units (Reference) URINE COLOR YELLOW URINE APPEARANCE CLEAR URINE GLUCOSE NEGATIVE (NEGATIVE) URINE BILIRUBIN NEGATIVE (NEGATIVE) URINE KETONE NEGATIVE (NEGATIVE) URINE SPECIFIC GRAVITY 1.025 (1.010-1.030) URINE PH 5.5 (5.0-8.0) URINE PROTEIN NEGATIVE (NEGATIVE) URINE UROBILINOGEN 0.2 EU/dL (0.2-1.0) URINE NITRITE NEGATIVE (NEGATIVE) URINE BLOOD NEGATIVE (NEGATIVE) URINE LEUK ESTERASE NEGATIVE (NEGATIVE) URINE RBC 0-1 rbc/hpf (0-1) URINE WBC 1-3 wbc/hpf (0-1) URINE EPITHELIAL CELLS 3-5 EPI/hpf (0-5) URINE BACTERIA NONE SEEN (NONE SEEN) URINE COMMENT CULT NOT INDICATED URINE CULTURES ARE SET-UP BASED ON THE FOLLOWING CRITERIA:POSITIVE NITRITEPOSITIVE LEUKOCYTE ESTERASEGREATER THAN 10 WHITE BLOOD CELLSMODERATE (2+) OR GREATER BACTERIA . PROGRESS AND PROCEDURES Course of Care: PROCEDURE: CT ABDOMEN/PELVIS W/O CONTRAST INDICATION: Right lower quadrant pain x 3 days, initial encounter TECHNIQUE: Noncontrast axial images were obtained of the entire abdomen and pelvis with sagittal and coronal reformations. COMPARISON: CT abdomen/pelvis 10/19/2015 FINDINGS: ABDOMEN: Lung bases are clear. Mild cardiomegaly. Mild splenomegaly (13.3 cm), stable. Cholecystectomy pancreas, adrenal glands and the kidneys are normal. Mild atherosclerosis of the aorta. There is fluid in the ascending colon. PELVIS: Status post appendectomy. Hysterectomy. There is no pelvic mass, inflammatory changes or free fluid. Mild degenerative changes of the spine pill no suspicious osseous lesions IMPRESSION: 1. Fluid in the ascending colon suggestive of enterocolitis 2. Cholecystectomy, appendectomy and hysterectomy. 3. Stable mild splenomegaly the patient is a pleasant and cooperative 70-year-old female with past medical history significant for recent visit to the emergency department. The patient states that she was told to go to the emergency department if her pain did not improve. The patient reports overall she's been having this problem for the past 6 months. Patient presents that she has been unable to follow up with her doctor because of a recent illness and was not able, what she describes as a endoscopy. had a long discussion with patient in regards to her symptoms here in the emergency department today. The pain has not worsened Since being in the emergency department. Patient reports that she got relief when was given medications here in the emergency Department prior. after having a long discussion with the patient in regards to her symptoms today, had offered patient a reevaluation of her abdomi laboratory studies as well as repeat imaging with CT scan. In speaking with patient and with significant other in regards to the risks and benefits of repeating these studies, patient states that she would like to have pain relief only at this time. Encouraged patient to follow up with her doctor and rescheduled the endoscopy procedure as she's been having this pain for a long time and would need to get reevaluated by a specialist. I had long discussion with the patient in regards to her workup here in the emergency department, diagnosis, follow-up, return precautions, and home care. All questions answered. The patient expressed understanding of these instructions and was agreeab. Do not feel patient needs to be admitted to the hospital or require further emergency department evaluation. Abdominal exam continues to be nonfocal and benign. Do not the patient is a surgical abdomen. Did not flip patient has abdominal aortic aneurysm, superior mesenteric artery thrombosis, or other more sinister etiology for her pain today. CT scan results and laboratory studies can be found on her visit on August 31, 2016. I have copied and pasted the CT scan results of her CT scan that was done yesterday for reference. Disposition: Discharged. Condition: good. CLINICAL IMPRESSION Acute right lower quadrant abdominal pain of unknown cause. INSTRUCTIONS Warnings: GENERAL WARNINGS: Return or contact your physician immediately if your condition worsens or changes unexpectedly, if not improving as expected, or if other problems arise. SPECIFICALLY, return if you develop pain, fever, vomiting, the inability to keep fluids down, blood in vomitus, blood in diarrhea, fainting or lightheadedness. Your Current Medications: CONTINUE TAKING THE FOLLOWING MEDICATIONS: Gabapentin Oral. Hydrocortisone Oral. Levothyroxine Sodium Oral. Lisinopril Oral. Metoprolol Tartrate Oral. MiraLax Oral. Multivitamins Oral. Nitroglycerin ER Oral. Pantoprazole Sodium Oral. Percocet 5mg prn*. Warfarin Sodium Oral. Zofran 4mg prn*. Follow-up: Return to the emergency department as needed. Follow up with a specialist Your GI doctor in three days. Reason for referral: recheck today's concerns and reschedule you procedure. Follow up with your doctor in three days. Reason for referral: recheck today's concerns. Screening today revealed the patient's blood pressure to be in the normal range. The patient should follow up with a primary care provider for blood pressure management. (Electronically signed by Hero Lay Dr. 09/04/2016 21:40)
--- NOTE | 2016-09-01 11:11 | ED ORDER SUMMARY ---
..... Patient: SAM MEYERS OrderSheet [facility] VisitID: [id number] [place] [address] 70y, F Registration Date/Time: 09/01/2016 ORDER SHEET Weight: 80.7 kg (stated) Allergies: Aredia, Avandia, Cephalexin, Codeine, CONTRAST DYE, Ibuprofen, Iodine, Narcotic Pain Medication, Septra, Sulfa Antibiotics, Sulfa Antibiotics, Zithromax GENERAL ORDERS: CBC w Diff Urgent (10:46 09/01/2016 Divina Cervantes) (Cancelled: Verbal per Fgcyfbztd27:13 SRoberts R.N.) CMP Urgent (10:46 09/01/2016 Divina Cervnates) (Cancelled: Verbal per Guirzkbpz83:13 SRoberts R.N.) UA-Culture if indicated Urgent (10:46 09/01/2016 Divina Cervantes) (Cancelled: Verbal per Dgfnpaoxa31:13 SRoberts R.N.) Lipase Urgent (10:46 09/01/2016 Divina Cervantes) (Cancelled: Verbal per Vfnnlqkmj07:13 SRoberts R.N.) Lactate, Serum Urgent (10:46 09/01/2016 Divina Cervantes) (Cancelled: Verbal per Wsnnbvdtp76:13 SRoberts R.N.) Pulse oximeter (10:46 09/01/2016 Divina Cervantes) (10:54 SRoberts R.N.) MEDICATION ORDERS: Dilaudid IM 1 mg (HIGH ALERT MEDICATION, NOW) (11:09/01/2016 Divina Cervantes) (Ack 11:14 SRoberts R.N.) (11:24 SRoberts R.N.) Zofran ODT PO 4 mg (NOW) (11:09/01/2016 Divina Cervantes) (Cancelled: Duplicate Order11:09 Divina Cervantes) Phenergan PO 25 mg (HIGH ALERT MEDICATION, NOW) (11:09/01/2016 Divina Cervantes) (Ack 11:14 SRoberts R.N.) (11:23 SRoberts R.N.) IV FLUIDS: IV NS : initial bolus 500 mL (1000 mL/hr), then none - for X1 (NOW) (10:45 09/01/2016 Divina Cervantes) (Ack 10:55 Yvonne R.NMauro) (Cancelled: Verbal per Dmcwjrbce92:13 Yvonne RTeresa) ORDER SHEET NOTES: [Electronically signed by Sana Albrecht R.N. (17:36 09/01/2016)] [Electronically signed by Hero Lay Dr. (21:40 09/04/2016)] [Electronically locked/signed by Sana Albrecht R.N. (17:36 09/01/2016)]
--- NOTE | 2016-09-04 21:41 | ED MAR SUMMARY ---
..... Medication Administration Record [facility] [address] [place] [place] [address] Patient: SAM MEYERS Visit ID: [id number] 70y, F Weight: 80.7 kg Height/Length: 66 in BMI: 28.7 ALLERGIES: Aredia, Avandia, Cephalexin, Codeine, CONTRAST DYE, Ibuprofen, Iodine, Narcotic Pain Medication, Septra, Sulfa Antibiotics, Sulfa Antibiotics, Zithromax Given 11:09/01/2016 Sana Albrecht RMauroNMauro Medication Administered: DILAUDID [IM] (HYDROMORPHONE HCL PF), Dose: 1 mg IM. Medication Ordered: Dilaudid IM 1 mg (HIGH ALERT MEDICATION, NOW). Given 11:09/01/2016 Sana Albrecht R.N. Medication Administered: PHENERGAN [PO] (PROMETHAZINE HCL), Dose: 25 mg PO. Medication Ordered: Phenergan PO 25 mg (HIGH ALERT MEDICATION, NOW).
--- NOTE | 2016-09-04 21:41 | ED MAR SUMMARY ---
..... Medication Administration Record [facility] [address] [place] [address] Patient: SAM MEYERS Visit ID: [id number] 70y, F Weight: 80.7 kg Height/Length: 66 in BMI: 28.7 ALLERGIES: Aredia, Avandia, Cephalexin, Codeine, CONTRAST DYE, Ibuprofen, Iodine, Narcotic Pain Medication, Septra, Sulfa Antibiotics, Sulfa Antibiotics, Zithromax Given 11:09/01/2016 Sana Albrecht RMauroNMauro Medication Administered: DILAUDID [IM] (HYDROMORPHONE HCL PF), Dose: 1 mg IM. Medication Ordered: Dilaudid IM 1 mg (HIGH ALERT MEDICATION, NOW). Given 11:09/01/2016 Sana Albrecht R.N. Medication Administered: PHENERGAN [PO] (PROMETHAZINE HCL), Dose: 25 mg PO. Medication Ordered: Phenergan PO 25 mg (HIGH ALERT MEDICATION, NOW).
--- NOTE | 2016-09-04 21:41 | ED DISCHARGE INSTRUCTIONS ---
Patient: SAM MEYERS General Instructions [facility] VisitID: [id number] [place] [address] 70y, F Registration Date/Time: 09/01/2016 Acute right lower quadrant abdominal pain of unknown cause. INSTRUCTIONS Warnings: GENERAL WARNINGS: Return or contact your physician immediately if your condition worsens or changes unexpectedly, if not improving as expected, or if other problems arise. SPECIFICALLY, return if you develop pain, fever, vomiting, the inability to keep fluids down, blood in vomitus, blood in diarrhea, fainting or lightheadedness. Your Current Medications: CONTINUE TAKING THE FOLLOWING MEDICATIONS: Gabapentin Oral. Hydrocortisone Oral. Levothyroxine Sodium Oral. Lisinopril Oral. Metoprolol Tartrate Oral. MiraLax Oral. Multivitamins Oral. Nitroglycerin ER Oral. Pantoprazole Sodium Oral. Percocet 5mg prn*. Warfarin Sodium Oral. Zofran 4mg prn*. Follow-up: Return to the emergency department as needed. Follow up with a specialist Your GI doctor in three days. Reason for referral: recheck today's concerns and reschedule you procedure. Follow up with your doctor in three days. Reason for referral: recheck today's concerns. Screening today revealed the patient's blood pressure to be in the normal range. The patient should follow up with a primary care provider for blood pressure management. ADDITIONAL INFORMATION Abdominal Pain, Unknown Cause (Female) The exact cause of your abdominal (stomach) pain is not certain. This does not mean that this is something to worry about, or the right tests were not done. Everyone likes to know the exact cause of the problem, but sometimes with abdominal pain, there is no clear-cut cause, and this could be a good thing. The good news is that your symptoms can be treated, and you will feel better. Your condition does not seem serious now; however, sometimes the signs of a serious problem may take more time to appear. For this reason,it is important for you to watch for any new symptoms, problems,or worsening of your condition. Over the next few days, the abdominal pain may come and go, or be continuous. Other common symptoms can include nausea and vomiting. Sometimes it can be difficult to tell if you feel nauseous, you may just feel bad and not associate that feeling with nausea. Constipation, diarrhea, and a fever may go along with the pain. The pain may continue even if treated correctly over the following days. Depending on how things go, sometimes the cause can become clear and may require further or different treatment. Additional evaluations, medications, or tests may be needed. Home care Your health care provider may prescribe medications for pain, symptoms, or an infection. Follow the health care provider's instructions for taking these medications. General care Rest until your next exam. No strenuous activities. Try to find positions that ease discomfort. A small pillow placed on the abdomen may help relieve pain. Something warm on your abdomen (such as a heating pad) may help, but be careful not to burn yourself. Diet Do not force yourself to eat, especially if having cramps, vomiting, or diarrhea. Water is important so you do not get dehydrated. Soup may also be good. Sports drinks may also help, especially if they are not too acidic. Make sure you don't drink sugary drinks as this can make things worse. Take liquids in small amounts. Do not guzzle them. Caffeine sometimes makes the pain and cramping worse. Avoid dairy products if you have vomiting or diarrhea. Don't eat large amounts at a time. Wait a few minutes between bites. Eat a diet low in fiber (called a low-residue diet). Foods allowed include refined breads, white rice, fruit and vegetable juices without pulp, tender meats. These foods will pass more easily through the intestine. Avoid whole-grain foods, whole fruits and vegetables, meats, seeds and nuts, fried or fatty foods, dairy, alcohol and spicy foods until your symptoms go away. Follow-up care Follow up with your health care provider as instructed, or if your pain does not begin to improve in the next 24 hours. When to seek medical care Seek prompt medical care if any of the following occur: Pain gets worse or moves to the right lower abdomen New or worsening vomiting or diarrhea Swelling of the abdomen Unable to pass stool for more than three days Fever of 100.4F (38C) or higher, or as directed by your healthcare provider. Blood in vomit or bowel movements (dark red or black color) Jaundice (yellow color of eyes and skin) Weakness, dizziness Chest, arm, back, neck or jaw pain Unexpected vaginal bleeding or missed period Call 911 Call emergency services if any of the following occur: Trouble breathing Confusion Fainting or loss of consciousness Rapid heart rate Seizure You have been given the following additional information: Abdominal Pain, Unknown Cause, (Female) (Electronically signed by Hero Lay Dr. 09/04/2016 21:40)
--- NOTE | 2016-09-04 21:41 | ED MED RECONCILIATION SUMMARY ---
Patient: SAM MEYERS Medication Reconciliation Report [facility] VisitID: [id number] [address] [place] [address] 70y, F Registration Date/Time: 09/01/2016 Weight: 80.7 kg Height/Length: 66 in. BMI: 28.7 ALLERGIES: Aredia, Avandia, Cephalexin, Codeine, CONTRAST DYE, Ibuprofen, Iodine, Narcotic Pain Medication, Septra, Sulfa Antibiotics, Sulfa Antibiotics, Zithromax The patient's Home Medications are listed below: CONTINUE TAKING THE FOLLOWING MEDICATIONS: Gabapentin Oral Hydrocortisone Oral Levothyroxine Sodium Oral Lisinopril Oral Metoprolol Tartrate Oral MiraLax Oral Multivitamins Oral Nitroglycerin ER Oral Pantoprazole Sodium Oral Percocet 5mg prn Warfarin Sodium Oral Zofran 4mg prn The source(s) of the original Home Medication information: patient The following Medications were given to the patient in the Emergency Department: Phenergan [PO] PO 25 mg, administered: 09/01/2016 11:23:00 AM Dilaudid [IM] IM 1 mg, administered: 09/01/2016 11:21:00 AM The following Medications were prescribed to the patient: None.
--- NOTE | 2016-09-04 21:41 | ED MED RECONCILIATION SUMMARY ---
Patient: SAM MEYERS Medication Reconciliation Report [facility] VisitID: [id number] [address] [place] [address] 70y, F Registration Date/Time: 09/01/2016 Weight: 80.7 kg Height/Length: 66 in. BMI: 28.7 ALLERGIES: Aredia, Avandia, Cephalexin, Codeine, CONTRAST DYE, Ibuprofen, Iodine, Narcotic Pain Medication, Septra, Sulfa Antibiotics, Sulfa Antibiotics, Zithromax The patient's Home Medications are listed below: CONTINUE TAKING THE FOLLOWING MEDICATIONS: Gabapentin Oral Hydrocortisone Oral Levothyroxine Sodium Oral Lisinopril Oral Metoprolol Tartrate Oral MiraLax Oral Multivitamins Oral Nitroglycerin ER Oral Pantoprazole Sodium Oral Percocet 5mg prn Warfarin Sodium Oral Zofran 4mg prn The source(s) of the original Home Medication information: patient The following Medications were given to the patient in the Emergency Department: Phenergan [PO] PO 25 mg, administered: 09/01/2016 11:23:00 AM Dilaudid [IM] IM 1 mg, administered: 09/01/2016 11:21:00 AM The following Medications were prescribed to the patient: None.
== END 2016-09-01 11:25 | disposition home or self-care (01) ==
LOC: ED SRH 09:53
DX: R10.31 Right lower quadrant pain (principal); Z79.891 Long term (current) use of opiate analgesic; Z79.01 Long term (current) use of anticoagulants; Z91.041 Radiographic dye allergy status; Z88.6 Allergy status to analgesic agent; Z88.2 Allergy status to sulfonamides
CPT/HCPCS: 90004

== ENCOUNTER 2017-01-28 15:26 | Emergency (ER) | payer OTHER, MEDICARE ==
--- NOTE | 2017-01-28 16:50 | DIAGNOSTIC IMAGING REPORT ---
PROCEDURE: XR CERVICAL SPINE 2 OR 3 VIEW INDICATION: NECK PAIN TECHNIQUE: Three views. COMPARISON: None. FINDINGS: Spondylosis C4-5, C5-6, and C6-7. No evidence of an acute process or fracture. IMPRESSION: 1. Spondylosis C4-5, C5-6, and C6-7.
--- NOTE | 2017-01-28 19:18 | ED NURSING NOTES ---
Clinical Report - Nurses [facility] [place] [address] 01/28/2017 15:27 Patient: SAM MEYERS TRIAGE Triage time 15:30 Jan 28 2017. Chief Complaint: NECK PAIN. Alert. No acute distress. SEPSIS SCREEN: Sepsis Screen. Negative (no infection suspected/documented). --15:38 Momo Huerta R.N. 15:29 01/28/17. BP: 144/63. HR: 63. RR: 20. O2 saturation: 96% on room air. Temp: 99.3 F. Pain level now: 05/25. --15:38 Momo Huerta R.N. Acuity: LEVEL 4. --15:38 Momo Huerta R.N. Weight: 77.1 kg stated. Height/Length: 66 inches Per Patient. BMI: 27.4. --15:29 Momo Huerta R.N. Medications Gabapentin Oral. Hydrocortisone Oral. Levothyroxine Sodium Oral. Lisinopril Oral. Multivitamins Oral. Nitroglycerin ER Oral. Warfarin Sodium Oral. --15:33 Momo Huerta R.N. Acetaminophen Oral. --16:25 Momo Huerta R.N. Dicyclomine 10 mg. --16:25 Momo Huerta R.N. Docusate Sodium Oral. --16:26 Momo Huerta R.N. Insulin Aspart Subcutaneous. --16:26 Momo Huerta R.N. Lactulose Oral. --16:26 Momo Huerta R.N. Metformin. --16:26 Momo Huerta R.N. Metoprolol tartrate 25 mg 1/2 tablet BID. --16:27 Momo Huerta R.N. Mupirocin. --16:27 Momo Huerta R.N. Ondansetron Oral. --16:27 Momo Huerta R.N. Percocet. --16:27 Momo Huerta R.N. Pantoprazole. --16:27 Momo Huerta R.N. Pravastatin. --16:27 Momo Huerta R.N. Allergies Aredia. Avandia. Cephalexin. Codeine. CONTRAST DYE. Ibuprofen. Iodine. Septra. Sulfa Antibiotics. Zithromax. --15:33 Momo Huerta R.N. Dilaudid. --16:24 Momo Huerta R.N. Amoxicillin. --16:24 Momo Huerta R.N. Bactroban. --16:24 Momo Huerta R.N. Doxycycline. --16:24 Momo Huerta R.N. Macrobid. --16:24 Momo Huerta R.N. NSAIDs. --16:24 Momo Huerta R.N. Penicillin. --16:24 Momo Huerta R.N. The following entry was struck by Momo Huerta R.N., 16:23 (01/28/17) Reason - other(Entering clarification). <<STRICKEN ENTRY-- Narcotic Pain Medication. --15:33 Momo Huerta R.N. --END STRIKE>>. History Arrived by EMS. Historian: patient. ( Pt presents today with new onset neck pain, vertebral point tenderness. EMS placed Pt in c-collar for immobilization. Pt reports trying to have BM last night, she states that she feels she strained too hard and this neck pain resulted. She also reports abdominal pain, generalized.). This started last night. No history of recent trauma. SOCIAL HX: Never smoker. No alcohol use or drug use. No infectious disease exposure. ABUSE ASSESSMENT: No report of abuse. SELF HARM ASSESSMENT: A self harm assessment was performed. The patient answered "no" to the question "Have you recently felt down, depressed, or hopeless?" and "Do you have thoughts of harming or killing yourself?". FALL RISK ASSESSMENT: Fall risk assessment completed. No fall risk identified. NUTRITIONAL RISK ASSESSMENT: The nutritional risk assessment revealed no deficiencies. FUNCTIONAL ASSESSMENT: Functional assessment: no impairments noted. LEARNING NEEDS ASSESSMENT: The learning needs assessment revealed no barriers. SKIN INTEGRITY ASSESSMENT: Skin integrity risk assessment completed. No skin integrity risk identified. --15:38 Momo Huerta R.N. PROBLEMS: Flank Pain. Hypertension. Myocardial Infarction. Heart Disease. UTI - Urinary Tract Infection. Gallstone(s). Gastroesophageal Reflux Disease. Rectal Bleed. Vomiting. Hypothyroidism. Gastritis. Anxiety Reaction. Atypical Chest Pain. Diarrhea. Abdominal Pain. Epistaxis. Pituitary adenoma. Atrial Fibrillation. Gastroenteritis. Foot Fracture. Immunizations. Brain Tumor. Diabetes Mellitus. --15:33 Momo Huerta R.N. ADDITIONAL SURGERIES: Ankle surgery. Appendectomy. Brain surgery for tumor removal 2014. Cholecystectomy. Hysterectomy. Jaw surgery. Knee Surgery. Vein stripping bilateral legs. --15:35 Momo Huerta R.N. Interventions ID band on patient. To treatment room. --15:38 Momo Huerta R.N. PHYSICAL ASSESSMENT To room via stretcher. GENERAL / NEURO / PSYCH: Oriented X 4. Appears in pain. RESPIRATORY: Respirations not labored. CVS: Capillary refill less than 2 seconds. GI / : Abdomen nontender. Abdomen not soft. Bowel sounds within normal limits. EXTREMITIES: Sensation intact in extremities. BACK: Limited ROM of the neck. Vertebral point tenderness. Soft tissue tenderness. --15:40 Momo Huerta R.N. NURSING PROGRESS NOTES The plan of care for this patient has been created. C-collar applied (from EMS). Patient gowned. Head of bed elevated. Reassurance given. Patient identifiers checked. Call light placed in reach. Side rails up x 2. Bed placed in lowest position. Patient ready for evaluation- notification provided. --15:41 Momo Huerta R.N. ( MD in to see Pt, clarified allergies, spouse at bedside. Awaiting orders.). --15:57 Momo Huerta R.N. 16:07 01/28/2017 Zofran ODT (Ondansetron) PO Oral Disintegrating Tablets 4 mg given. Allergies verified and confirmed 5 rights. --16:17 Momo Huerta R.N. 16:19 01/28/2017 Morphine (Morphine Sulfate (PF)) IM 4 mg given. Given in the right deltoid. Allergies verified, confirmed 5 rights and sedative warning given to the patient. --16:19 Momo Huerta R.N. ( Assisted Pt on/off bedpan, she is apparently painful even with minimal repositioning. She screams and cries out with the slightest touch on the arm or placement of BP cuff. Spouse at bedside. He provided us with an updated list of meds and allergies for clarification.). --16:29 Momo Huerta R.N. Patient transported to radiology by stretcher with tech. (16:32 Jan 28 2017). --16:33 Momo Huerta R.N. Patient returned from radiology by stretcher with tech. (16:40 Jan 28 2017). --16:59 Momo Huerta R.N. 17:02 01/28/17. BP: 122/70 taken on the left arm, while lying. HR: 55. RR: 18. O2 saturation: 95% on room air. Pain level now: 04/25. --17:03 Momo Huerta R.N. ( C-collar dc'd per MD instruction. Pt is resting in bed, watching TV, spouse at bedside, no needs voiced, wctm.). --17:09 Momo Huerta R.N. 17:24 01/28/2017 Zofran ODT PO Response: no adverse reaction. --17:49 Momo Huerta R.N. 17:24 01/28/2017 Morphine IM Response: no adverse reaction symptoms are the same. --17:49 Momo Huerta R.N. 17:49 01/28/2017 Diazepam (Diazepam) PO Tablets 5 mg given. Allergies verified, confirmed 5 rights and sedative warning given to the patient. --17:49 Momo Huerta R.N. ( Pt is apparently asleep, spouse at bedside, no noted distress, Pt appears comfortable, WCTM.). --18:32 Momo Huerta R.N. 19:17 01/28/17. BP: 125/48 taken while lying. HR: 57. RR: 16 (regular). O2 saturation: 97% on room air. --19:18 Octavio Grajeda, ER [employer]. Intake & Output Urine: 100 mL, with return of yellow-colored urine. --16:33 Momo Huerta R.N. DISPOSITION / DISCHARGE <<STRICKEN ENTRY-- late entry - 15:25. Departure time: 1525. Condition at departure: stable. The goals identified in the patient's plan of care were met. No learning barriers present. Discharge instructions provided and reviewed with the patient. Reviewed warnings (Pt instructed not to drive while taking Ultram.). Reviewed medication(s) side effects, precautions, dosing and course information. Prescription(s) given to the patient (Ultram 50 mg). Reviewed referral to a primary care physician for followup. Patient verbalized understanding. Written instructions provided in Persian. The patient was discharged home. She left the Emergency Department ambulatory and via private vehicle. Patient driving. ( Pt left in a hurry, anxious to get to another appointment, verbalized understanding of DC instructions.). --15:51 Momo Huerta R.N. --END STRIKE>> Charted On Wrong Patient --15:51 Momo Huerta R.N. Condition at departure: improved and stable. No learning barriers present. Discharge instructions provided and reviewed with the patient and spouse. Reviewed medication(s) side effects, precautions, dosing and course information. Prescription(s) given to the patient. Reviewed referral to a primary care physician for followup. Patient verbalized understanding. Written instructions provided in Persian. The patient was discharged home and accompanied by spouse. She left the Emergency Department in a wheelchair and via private vehicle. Spouse driving. --19:38 Lisseth Fry R.N. 19:33 01/28/17. BP: 125/70 taken on the left arm, while lying. HR: 58 (regular and normal rate). RR: 18 (regular and unlabored). O2 saturation: 95% on room air. Temp: deferred. Pain level now: 11/23. --19:38 Lisseth Fry R.N. Departure time: 1932. --19:38 Lisseth Fry R.N. Locked/Released at 01/28/2017 19:39 by Lisseth Fry R.N.
--- NOTE | 2017-01-28 19:18 | ED ORDER SUMMARY ---
..... Patient: SAM MEYERS OrderSheet [facility] VisitID: [id number] [place] [address] 71y, F Registration Date/Time: 01/28/2017 ORDER SHEET Weight: 77.1 kg (stated) Allergies: Aredia, Avandia, Cephalexin, Codeine, CONTRAST DYE, Ibuprofen, Iodine, Septra, Sulfa Antibiotics, Zithromax, Dilaudid, Amoxicillin, Bactroban, Doxycycline, Macrobid, NSAIDs, Penicillin GENERAL ORDERS: Cervical Spine 2 or 3V Urgent (16:06 01/28/2017 Gerard Cervantes) (Ack 16:08 Franco) (17:00 MCook R.N.) Not a true allergy, only gets nauseated MEDICATION ORDERS: Zofran ODT PO 4 mg (NOW) (16:06 01/28/2017 Gerard Cervantes) (16:17 MCook R.N.) Not a true allergy, only gets nauseated Morphine IM 4 mg (HIGH ALERT MEDICATION, NOW) (16:06 01/28/2017 Gerard Cervantes) (16:19 MCook R.N.) Not a true allergy, only gets nauseated Diazepam PO 5 mg (HIGH ALERT MEDICATION, NOW) (17:34 01/28/2017 Gerard Cervantes) (Ack 17:45 MCook R.N.) (17:49 MCook R.N.) IV FLUIDS: ORDER SHEET NOTES: [Electronically signed by Lisseth Fry R.N. (19:39 01/28/2017)] [Electronically signed by Ulises Wright Dr. (23:27 01/29/2017)] [Electronically locked/signed by Lisseth Fry R.N. (19:39 01/28/2017)]
--- NOTE | 2017-01-28 19:18 | ED ORDER SUMMARY ---
..... Patient: SAM MEYERS OrderSheet [facility] VisitID: [id number] [place] [address] 71y, F Registration Date/Time: 01/28/2017 ORDER SHEET Weight: 77.1 kg (stated) Allergies: Aredia, Avandia, Cephalexin, Codeine, CONTRAST DYE, Ibuprofen, Iodine, Septra, Sulfa Antibiotics, Zithromax, Dilaudid, Amoxicillin, Bactroban, Doxycycline, Macrobid, NSAIDs, Penicillin GENERAL ORDERS: Cervical Spine 2 or 3V Urgent (16:06 01/28/2017 Gerard Cervantes) (Ack 16:08 Franco) (17:00 MCook R.N.) Not a true allergy, only gets nauseated MEDICATION ORDERS: Zofran ODT PO 4 mg (NOW) (16:06 01/28/2017 Gerard Cervantes) (16:17 MCook R.N.) Not a true allergy, only gets nauseated Morphine IM 4 mg (HIGH ALERT MEDICATION, NOW) (16:06 01/28/2017 Gerard Cervantes) (16:19 MCook R.N.) Not a true allergy, only gets nauseated Diazepam PO 5 mg (HIGH ALERT MEDICATION, NOW) (17:34 01/28/2017 Gerard Cervantes) (Ack 17:45 MCook R.N.) (17:49 MCook R.N.) IV FLUIDS: ORDER SHEET NOTES: [Electronically signed by Lisseth Fry R.N. (19:39 01/28/2017)] [Electronically signed by Ulises Wright Dr. (23:27 01/29/2017)] [Electronically locked/signed by Lisseth Fry R.N. (19:39 01/28/2017)]
--- NOTE | 2017-01-28 19:18 | ED CLINICAL REPORT ---
Clinical Report - Physicians/Mid Levels [facility] [address] [place] [address] 01/28/2017 15:27 Patient: SAM MEYERS Time Seen: 15:36; initial patient contact. Arrived- By private vehicle. Historian- patient. HISTORY OF PRESENT ILLNESS Chief Complaint: NECK PAIN. Modifying factors- worsened by rotation of the head to the right or left or neck flexion. Not relieved by anything. It is described as being moderate in degree. It is described as being in the area of the left trapezius, left side of the cervical spine, cervical spine, right side of the cervical spine and right trapezius. The quality is noted to be "pain". No radiation. Onset was last night and it is still present. It was gradual in onset and has been constant. No bladder dysfunction, bowel dysfunction, sensory loss or motor loss. Patient denies an injury but injury to the head or chest. Similar symptoms previously: None. Recent medical care: Not recently seen/assessed. REVIEW OF SYSTEMS No fever, chills, difficulty with urination, numbness or weakness. She has had neck pain. All systems otherwise negative, except as recorded above. PAST HISTORY Flank Pain. Hypertension. Myocardial Infarction. Heart Disease. UTI - Urinary Tract Infection. Gallstone(s). Gastroesophageal Reflux Disease. Rectal Bleed. Vomiting. Hypothyroidism. Gastritis. Anxiety Reaction. Atypical Chest Pain. Diarrhea. Abdominal Pain. Epistaxis. Pituitary adenoma. Atrial Fibrillation. Gastroenteritis. Foot Fracture. Immunizations. Brain Tumor. Diabetes Mellitus. SURGERIES: Ankle surgery. Appendectomy. Brain surgery for tumor removal 2014. Cholecystectomy. Hysterectomy. Jaw surgery. Knee Surgery. Vein stripping bilateral legs. SOCIAL HISTORY Never smoker. No alcohol use or drug use. ADDITIONAL NOTES The nursing notes have been reviewed. PHYSICAL EXAM Vital Signs: 01/28/2017 15:29 BP: 144/63. HR: 63. RR: 20. O2 saturation: 96%. Temp: 99.3 F. Pain level now: 10/10. Have been reviewed. Hypertensive. Heart rate normal. Respiratory rate normal. Temperature normal. Oxygen saturation normal. Appearance: Alert. Appears to be in pain. ENT: Pharynx normal. Neck: Moderate pain in the entire posterior neck upon turning the head to the right, turning the head to the left, lifting the head, flexing the neck and extending the neck. Moderate muscle spasm of the right and left posterior neck. No vertebral tenderness. Moderate soft tissue tenderness in the right upper, mid and lower neck area and left upper, mid and lower neck area. No meningeal signs. CVS: Normal heart rate and rhythm. Heart sounds normal. Respiratory: No respiratory distress. Breath sounds normal. Neuro: Oriented X 3. Mood/affect normal. No motor deficit. No sensory deficit. Reflexes normal. LABS, X-RAYS, AND EKG C-Spine X-rays: (Spondylosis C4-5, C5-6, and C6-7. No evidence of an acute process or fracture.). Views: 5 view C-spine series. Technique: good. The X-rays were independently viewed by me and interpreted contemporaneously by me. Prior films were not available for comparison. PROGRESS AND PROCEDURES Disposition: Discharged home in good and improved condition. Condition: good. CLINICAL IMPRESSION Acute cervical strain. INSTRUCTIONS No lifting greater than 5 lbs until well. Your Current Medications: CONTINUE TAKING THE FOLLOWING MEDICATIONS: Acetaminophen Oral. Dicyclomine 10 mg*. Docusate Sodium Oral. Gabapentin Oral. Hydrocortisone Oral. Insulin Aspart Subcutaneous. Lactulose Oral. Levothyroxine Sodium Oral. Lisinopril Oral. Metformin*. Metoprolol tartrate 25 mg 1/2 tablet BID*. Multivitamins Oral. Mupirocin*. Nitroglycerin ER Oral. Ondansetron Oral. Pantoprazole*. Percocet*. Pravastatin*. Warfarin Sodium Oral. Prescription Medications: Baclofen 10 mg: take 1 orally every 8 hours. Dispense thirty (30). No refills. Follow-up: Follow up with your doctor in about four days. Call for an appointment. Blood pressure screening was not performed during this visit because the patient has an active diagnosis of hypertension. (Electronically signed by Ulises Wright Dr. 01/29/2017 23:27)
--- NOTE | 2017-01-29 23:28 | ED MAR SUMMARY ---
..... Medication Administration Record [facility] [address] [place] [address] Patient: SAM MEYERS Visit ID: [id number] 71y, F Weight: 77.1 kg Height/Length: 66 in BMI: 27.4 ALLERGIES: Aredia, Avandia, Cephalexin, Codeine, CONTRAST DYE, Ibuprofen, Iodine, Septra, Sulfa Antibiotics, Zithromax, Penicillin, NSAIDs, Macrobid, Doxycycline, Bactroban, Amoxicillin, Dilaudid Given 16:07 01/28/2017 Momo Huerta R.N. Medication Administered: ZOFRAN ODT [PO] (ONDANSETRON), Dose: 4 mg Oral Disintegrating Tablets PO. Medication Ordered: Zofran ODT PO 4 mg (NOW). Given 16:19 01/28/2017 Momo Huerta R.N. Medication Administered: MORPHINE [IM] (MORPHINE SULFATE (PF)), Dose: 4 mg IM. Medication Ordered: Morphine IM 4 mg (HIGH ALERT MEDICATION, NOW). Given 17:49 01/28/2017 Momo Huerta R.NMauro Medication Administered: DIAZEPAM [PO] (DIAZEPAM), Dose: 5 mg Tablets PO. Medication Ordered: Diazepam PO 5 mg (HIGH ALERT MEDICATION, NOW).
--- NOTE | 2017-01-29 23:28 | ED MAR SUMMARY ---
..... Medication Administration Record [facility] [address] [place] [address] Patient: SAM MEYERS Visit ID: [id number] 71y, F Weight: 77.1 kg Height/Length: 66 in BMI: 27.4 ALLERGIES: Aredia, Avandia, Cephalexin, Codeine, CONTRAST DYE, Ibuprofen, Iodine, Septra, Sulfa Antibiotics, Zithromax, Penicillin, NSAIDs, Macrobid, Doxycycline, Bactroban, Amoxicillin, Dilaudid Given 16:07 01/28/2017 Momo Huerta R.N. Medication Administered: ZOFRAN ODT [PO] (ONDANSETRON), Dose: 4 mg Oral Disintegrating Tablets PO. Medication Ordered: Zofran ODT PO 4 mg (NOW). Given 16:19 01/28/2017 Momo Huerta R.N. Medication Administered: MORPHINE [IM] (MORPHINE SULFATE (PF)), Dose: 4 mg IM. Medication Ordered: Morphine IM 4 mg (HIGH ALERT MEDICATION, NOW). Given 17:49 01/28/2017 Momo Huerta R.NMauro Medication Administered: DIAZEPAM [PO] (DIAZEPAM), Dose: 5 mg Tablets PO. Medication Ordered: Diazepam PO 5 mg (HIGH ALERT MEDICATION, NOW).
--- NOTE | 2017-01-29 23:28 | ED MED RECONCILIATION SUMMARY ---
Patient: SAM MEYERS Medication Reconciliation Report [facility] VisitID: [id number] [address] [place] [address] 71y, F Registration Date/Time: 01/28/2017 Weight: 77.1 kg Height/Length: 66 in. BMI: 27.4 ALLERGIES: Amoxicillin, Aredia, Avandia, Bactroban, Cephalexin, Codeine, CONTRAST DYE, Dilaudid, Doxycycline, Ibuprofen, Iodine, Macrobid, NSAIDs, Penicillin, Septra, Sulfa Antibiotics, Zithromax The patient's Home Medications are listed below: CONTINUE TAKING THE FOLLOWING MEDICATIONS: Acetaminophen Oral Dicyclomine 10 mg Docusate Sodium Oral Gabapentin Oral Hydrocortisone Oral Insulin Aspart Subcutaneous Lactulose Oral Levothyroxine Sodium Oral Lisinopril Oral Metformin Metoprolol tartrate 25 mg 1/2 tablet BID Multivitamins Oral Mupirocin Nitroglycerin ER Oral Ondansetron Oral Pantoprazole Percocet Pravastatin Warfarin Sodium Oral The source(s) of the original Home Medication information: Not obtained. The following Medications were given to the patient in the Emergency Department: Zofran ODT [PO] PO 4 mg, administered: 01/28/2017 4:07:00 PM Morphine [IM] IM 4 mg, administered: 01/28/2017 4:19:00 PM Diazepam [PO] PO 5 mg, administered: 01/28/2017 5:49:00 PM The following Medications were prescribed to the patient: Baclofen 10 mg: take 1 orally every 8 hours. Dispense thirty (30). No refills. -- Ulises Wright Dr.
--- NOTE | 2017-01-29 23:28 | ED DISCHARGE INSTRUCTIONS ---
Patient: SAM MEYERS General Instructions [facility] VisitID: [id number] [place] [address] 71y, F Registration Date/Time: 01/28/2017 Acute cervical strain. INSTRUCTIONS No lifting greater than 5 lbs until well. Your Current Medications: CONTINUE TAKING THE FOLLOWING MEDICATIONS: Acetaminophen Oral. Dicyclomine 10 mg*. Docusate Sodium Oral. Gabapentin Oral. Hydrocortisone Oral. Insulin Aspart Subcutaneous. Lactulose Oral. Levothyroxine Sodium Oral. Lisinopril Oral. Metformin*. Metoprolol tartrate 25 mg 1/2 tablet BID*. Multivitamins Oral. Mupirocin*. Nitroglycerin ER Oral. Ondansetron Oral. Pantoprazole*. Percocet*. Pravastatin*. Warfarin Sodium Oral. Prescription Medications: Baclofen 10 mg: take 1 orally every 8 hours. Dispense thirty (30). No refills. Follow-up: Follow up with your doctor in about four days. Call for an appointment. Blood pressure screening was not performed during this visit because the patient has an active diagnosis of hypertension. ADDITIONAL INFORMATION Neck Sprain Or Strain A sudden force that causes turning or bending of the neck (such as in a car accident) can stretch or tear muscles (strain) and ligaments (sprain) and cause neck pain. Sometimes neck pain occurs after a simple awkward movement. In either case, muscle spasm is commonly present and contributes to the pain. Unless you had a forceful physical injury (for example, a car accident or fall), X-rays are usually not ordered for the initial evaluation of neck pain. If pain continues and dose not respond to medical treatment, X-rays and other tests may be performed at a later time. Home care The following guidelines will help you care for your injury at home: You may feel more soreness and spasm the first few days after the injury. Reduce your activity level until symptoms begin to improve. When lying down, use a comfortable pillow that supports the head and keeps the spine in a neutral position. The position of the head should not be tilted forward or backward. Use ice packs (ice in a plastic bag, wrapped in a towel) to treat acute pain. Apply for 20 minutes every 24 hours during the first two days. Then, begin local heat (hot shower, hot bath or heating pad) andmassageto reduce muscle spasm. Some patients feel best alternating hot and cold treatments, or just staying with one method only. Do what feels the best to you and gives the most relief. You may use acetaminophen or ibuprofen to control pain, unless another pain medicine was prescribed.If you have chronic liver or kidney disease or ever had a stomach ulcer or GI bleeding, talk with your doctor before using these medicines. Follow-up care Follow up with your physician or this facility if your symptoms do not show signs of improvement. Physical therapy may be needed. If you had X-rays today, they didnt show any broken bones, breaks, or fractures. Sometimes fractures dont show up on the first X-ray. Bruises and sprains can sometimes hurt as much as a fracture. These injuries can take time to heal completely. If your symptoms dont improve or they get worse, talk with your doctor. You may need a repeat X-ray. When to seek medical care Get prompt medical attention if any of the following occur: Pain becomes worse or spreads into your arms Weakness or numbness in one or both arms You have been given the following additional information: Neck Sprain/Strain No lifting greater than 5 lbs until well. (Electronically signed by Ulises Wright Dr. 01/29/2017 23:27)
--- NOTE | 2017-01-29 23:28 | ED MED RECONCILIATION SUMMARY ---
Patient: SAM MEYERS Medication Reconciliation Report [facility] VisitID: [id number] [address] [place] [address] 71y, F Registration Date/Time: 01/28/2017 Weight: 77.1 kg Height/Length: 66 in. BMI: 27.4 ALLERGIES: Amoxicillin, Aredia, Avandia, Bactroban, Cephalexin, Codeine, CONTRAST DYE, Dilaudid, Doxycycline, Ibuprofen, Iodine, Macrobid, NSAIDs, Penicillin, Septra, Sulfa Antibiotics, Zithromax The patient's Home Medications are listed below: CONTINUE TAKING THE FOLLOWING MEDICATIONS: Acetaminophen Oral Dicyclomine 10 mg Docusate Sodium Oral Gabapentin Oral Hydrocortisone Oral Insulin Aspart Subcutaneous Lactulose Oral Levothyroxine Sodium Oral Lisinopril Oral Metformin Metoprolol tartrate 25 mg 1/2 tablet BID Multivitamins Oral Mupirocin Nitroglycerin ER Oral Ondansetron Oral Pantoprazole Percocet Pravastatin Warfarin Sodium Oral The source(s) of the original Home Medication information: Not obtained. The following Medications were given to the patient in the Emergency Department: Zofran ODT [PO] PO 4 mg, administered: 01/28/2017 4:07:00 PM Morphine [IM] IM 4 mg, administered: 01/28/2017 4:19:00 PM Diazepam [PO] PO 5 mg, administered: 01/28/2017 5:49:00 PM The following Medications were prescribed to the patient: Baclofen 10 mg: take 1 orally every 8 hours. Dispense thirty (30). No refills. -- Ulises Wright Dr.
== END 2017-01-28 19:33 | disposition home or self-care (01) ==
LOC: ED SRH 15:26
DX: S16.1XXA Strain of muscle, fascia and tendon at neck level, initial encounter (principal); X58.XXXA Exposure to other specified factors, initial encounter; Y93.9 Activity, unspecified; Y92.9 Unspecified place or not applicable; Y99.9 Unspecified external cause status; I10 Essential (primary) hypertension; I25.2 Old myocardial infarction; K21.9 Gastro-esophageal reflux disease without esophagitis; I48.91 Unspecified atrial fibrillation; E03.9 Hypothyroidism, unspecified

== ENCOUNTER 2017-01-29 07:47 | Emergency (ER) | payer OTHER, MEDICARE ==
--- NOTE | 2017-01-29 09:11 | ED CLINICAL REPORT ---
Clinical Report - Physicians/Mid Levels [facility] [address] [place] [address] 01/29/2017 7:47 Patient: SAM MEYERS Time Seen: 08:04. Arrived- By ambulance. Historian- patient and EMS personnel. HISTORY OF PRESENT ILLNESS Chief Complaint: NECK PAIN. It is described as being severe and in the area of the left side of the cervical spine, cervical spine and right side of the cervical spine. The quality is noted to be "pain" and similar to prior episodes. No radiation. Modifying factors- worsened by rotation of the head. Relieved by remaining still. Onset was yesterday and it is still present. It was gradual in onset and has been waxing/waning. No bladder dysfunction, bowel dysfunction, sensory loss or motor loss. Patient notes the possibility of an injury but denies injury to the head or chest. Mechanism of injury- (may have slept wrong per pt - woke 2 days ago with pain). No other injury. Similar symptoms previously: Recent medical care: The patient was seen recently at this facility in the emergency department. REVIEW OF SYSTEMS No fever, chills, depression, sore throat or cough. No difficulty breathing, chest pain, skin rash, abdominal pain or nausea. No vomiting, diarrhea, black stools, difficulty with urination or urinary frequency. No hematuria or bloody stools. All systems otherwise negative, except as recorded above. PAST HISTORY Flank Pain. Hypertension. Myocardial Infarction. Heart Disease. UTI - Urinary Tract Infection. Gallstone(s). Gastroesophageal Reflux Disease. Rectal Bleed. Vomiting. Hypothyroidism. Gastritis. Anxiety Reaction. Atypical Chest Pain. Diarrhea. Abdominal Pain. Epistaxis. Pituitary adenoma. Atrial Fibrillation. Gastroenteritis. Foot Fracture. Brain Tumor. Diabetes Mellitus. SURGERIES: Ankle surgery. Appendectomy. Brain surgery for tumor removal 2014. Cholecystectomy. Hysterectomy. Jaw surgery. Knee Surgery. Vein stripping bilateral legs. SOCIAL HISTORY Never smoker. Is a local resident. ADDITIONAL NOTES The nursing notes have been reviewed. PHYSICAL EXAM Vital Signs: 01/29/2017 07:53 BP: 128/57. HR: 80. RR: 16. O2 saturation: 95%. Temp: 99.7 F. Appearance: Alert. Patient in moderate distress. HEENT: Normal external inspection. Eyes: No pale conjunctivae. ENT: Pharynx normal. No pharyngeal erythema or tonsillar exudate. Neck: Normal inspection. Pain in the neck upon movement. No vertebral tenderness. Soft tissue tenderness (superficial / muscular tenderness). No nuchal rigidity. Negative Brudzinski's sign. CVS: Normal heart rate and rhythm. Pulses normal. Respiratory: No respiratory distress. Breath sounds normal. Abdomen: Normal inspection. Soft and nontender. Back: Normal inspection. No tenderness. Painless ROM. Skin: Skin warm and dry. Normal skin color. Normal skin turgor. Extremities: Extremities exhibit normal ROM. Extremities nontender. Neuro: Oriented X 3. Abnormal mood/affect. No motor deficit. No sensory deficit. Reflexes normal. LABS, X-RAYS, AND EKG C-Spine X-rays: (IMPRESSION: DONE YESTERDAY AT [facility] ED 1. Spondylosis C4-5, C5-6, and C6-7.). Views: 3 view C-spine series. Technique: good. The X-rays were interpreted by the radiologist. PROGRESS AND PROCEDURES Course of Care: Ativan 1mg IM given. Zofran 4 mg ODT PO given. Morphine 4 mg IM given. Clear muscular tenderness. Pt very anxious appearing. Not clinically c/w cord compression or spinal / epidural infectious process (no fever or systemic symptoms now). Pt prescribed baclofen yesterday, but never filled the Rx. X-rays yesterday did not reveal any acute abnormality. No bleeding diathesis. 09:01 01/29/17. Patient is stable. Physical exam findings are improved. Symptoms much better. Patient/family counseled. Old ED records reviewed. Patient has had multiple ED visits. Disposition: Discharged. Condition: stable and improved. CLINICAL IMPRESSION Acute cervical strain. INSTRUCTIONS Apply ice. Warnings: SEDATIVE MEDICATION: You were given sedative medication during your visit. Do not drive or operate dangerous machinery. CONTROLLED SUBSTANCE WARNINGS. GENERAL WARNINGS: Return or contact your physician immediately if your condition worsens or changes unexpectedly, if not improving as expected, or if other problems arise. Your Current Medications: CONTINUE TAKING THE FOLLOWING MEDICATIONS: Acetaminophen Oral. Dicyclomine 10 mg*. Docusate Sodium Oral. Gabapentin Oral. Hydrocortisone Oral. Insulin Aspart Subcutaneous. Lactulose Oral. Levothyroxine Sodium Oral. Lisinopril Oral. Metformin*. Metoprolol tartrate 25 mg 1/2 tablet BID*. Multivitamins Oral. Mupirocin*. Nitroglycerin ER Oral. Ondansetron Oral. Pantoprazole*. Percocet*. Pravastatin*. Warfarin Sodium Oral. Follow-up: Follow up with your doctor Chely (Dr. Eldridge' partner) at the [facility] in [place] at 1:45 pm today - please try and arrive about 10 min early today. (Electronically signed by New Hussein DO 01/30/2017 20:59)
--- NOTE | 2017-01-29 09:11 | ED ORDER SUMMARY ---
..... Patient: SAM MEYERS OrderSheet [facility] VisitID: [id number] [address] [place] [address] 71y, F Registration Date/Time: 01/29/2017 ORDER SHEET Weight: 90.7 kg (estimated) Allergies: Amoxicillin, Aredia, Avandia, Bactroban, Cephalexin, Codeine, CONTRAST DYE, Dilaudid, Doxycycline, Ibuprofen, Iodine, Macrobid, NSAIDs, Penicillin, Septra, Sulfa Antibiotics, Zithromax GENERAL ORDERS: MEDICATION ORDERS: Ativan IM 1 mg (HIGH ALERT MEDICATION, NOW) (08:12 01/29/2017 [facility]) (8[facility] Morphine IM 4 mg (NOW) (08:01/29/2017 [facility]) (8:[facility]) Zofran ODT PO 4 mg (NOW) (08:[facility]29/[facility] (8:27 [facility]) IV FLUIDS: ORDER SHEET NOTES: [Electronically signed by Aleena Terrell (10:30 01/29/2017)] [Electronically signed by New Hussein DO (20:59 01/30/2017)] [Electronically locked/signed by Aleena Terrell (10:30 01/29/2017)]
--- NOTE | 2017-01-29 09:11 | ED NURSING NOTES ---
Clinical Report - [facility] [address] [place] [address] 01/29/2017 7:47 [id number] Triage time 0750. Acuity: LEVEL 4. Chief Complaint: HEADACHE and (neck pain). Alert. No acute distress. --07:56 Aleena Terrell 07:53 01/29/17. BP: 128/57. HR: 80. RR: 16. O2 saturation: 95%. Temp: 99.7 F. Pain level now 05/25. --07:56 Aleena Terrell. Weight: 90.7 kg estimated. Height/Length: 66 inches Per Patient. BMI: 32.3. --07:52 Aleena Terrell. Medications Acetaminophen Oral. Dicyclomine 10 mg. Docusate Sodium Oral. Gabapentin Oral. Hydrocortisone Oral. Insulin Aspart Subcutaneous. Lactulose Oral. Levothyroxine Sodium Oral. Lisinopril Oral. Metformin. Metoprolol tartrate 25 mg 1/2 tablet BID. Multivitamins Oral. Mupirocin. Nitroglycerin ER Oral. Ondansetron Oral. Pantoprazole. Percocet. Pravastatin. Warfarin Sodium Oral. --07:54 Aleena Terrell. Allergies Amoxicillin. Aredia. Avandia. Bactroban. Cephalexin. Codeine. CONTRAST DYE. Dilaudid. Doxycycline. Ibuprofen. Iodine. Macrobid. NSAIDs. Penicillin. Septra. Sulfa Antibiotics. Zithromax. --07:54 Aleena Terrell. History Arrived by EMS. Historian: EMS and patient. ( Pt seen here yesterday for same, was given rx for baclofen). 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 SOCIAL HX: Never smoker. FALL RISK ASSESSMENT: Fall risk assessment completed. No fall risk identified. NUTRITIONAL RISK ASSESSMENT: The nutritional risk assessment revealed no deficiencies. FUNCTIONAL ASSESSMENT: Functional assessment: no impairments noted. LEARNING NEEDS ASSESSMENT: The learning needs assessment revealed no barriers. SKIN INTEGRITY ASSESSMENT: Skin integrity risk assessment completed. No skin integrity risk identified. --07:56 Aleena Terrell. PROBLEMS: Cervical Strain. Flank Pain. Myocardial Infarction. Hypertension. Heart Disease. UTI - Urinary Tract Infection. Gallstone(s). Gastroesophageal Reflux Disease. Rectal Bleed. Vomiting. Hypothyroidism. Gastritis. Anxiety Reaction. Atypical Chest Pain. Diarrhea. Abdominal Pain. Epistaxis. Pituitary adenoma. Atrial Fibrillation. Gastroenteritis. Foot Fracture. Brain Tumor. Diabetes Mellitus. --07:55 Aleena Terrell. ADDITIONAL SURGERIES: Ankle surgery. Appendectomy. Brain surgery for tumor removal 2014. Cholecystectomy. Hysterectomy. Jaw surgery. Knee Surgery. Vein stripping bilateral legs. --07:55 Aleena Terrell. Interventions To treatment room. --07:56 Aleena Terrell. PHYSICAL ASSESSMENT To room via stretcher. GENERAL / NEURO / PSYCH: Alert. Oriented X 4. She is awake, shows no apparent trauma, is oriented, has poor eye contact and exhibits poor consolability. She appears withdrawn. Speech within normal limits. HEENT: No facial asymmetry noted. Pupils equal, round and reactive to light. RESPIRATORY: Respirations not labored. Breath sounds within normal limits. CVS: Capillary refill less than 2 seconds. GI / : Abdomen soft and nontender. SKIN: Skin is warm and dry. --07:58 Aleena Terrell. NURSING PROGRESS NOTES Reassurance given. Call light placed in reach. Side rails up x 2. Bed placed in lowest position. Brakes of bed on. Patient ready for evaluation- chart flagged. --07:58 Aleena Terrell 08:27 01/29/2017 Ativan (LORazepam) IM 1 mg given. Given in the right gluteus brittanie. Allergies verified, confirmed 5 rights and sedative warning given to the patient. --08:27 Aleena Terrell 08:27 01/29/2017 Morphine (Morphine Sulfate (PF)) IM 4 mg given. Given in the right gluteus brittanie. Allergies verified, confirmed 5 rights and sedative warning given to the patient. --08:27 Aleena Terrell 08:27 01/29/2017 Zofran ODT (Ondansetron) PO 4 mg given. Allergies verified and confirmed 5 rights. --08:27 Aleena Terrell Reassessment after medication administered. She is calm and has had no adverse reaction. Overall patient status is improved- she states feels better. --10:15 Aleena Terrell. DISPOSITION / DISCHARGE Departure time: 1010. Condition at departure: improved and stable. No learning barriers present. Discharge instructions provided and reviewed with the patient and spouse. Patient and spouse verbalized understanding. Written instructions provided in Wallisian. The patient was discharged by the physician. She was discharged home and accompanied by spouse. She left the Emergency Department in a wheelchair and via private vehicle. Spouse driving. --10:16 Aleena Terrell 10:15 01/29/17. BP: 126/66. HR: 72. RR: 18. O2 saturation: 96%. Pain level now 510. --10:16 Aleena Terrell. Locked/Released at 01/29/2017 10:30 by Aleena Terrell,
--- NOTE | 2017-01-29 09:11 | ED CLINICAL REPORT ---
Clinical Report - Physicians/Mid Levels [facility] [address] [place] [address] 01/29/2017 7:47 Patient: SAM MEYERS Time Seen: 08:04. Arrived- By ambulance. Historian- patient and EMS personnel. HISTORY OF PRESENT ILLNESS Chief Complaint: NECK PAIN. It is described as being severe and in the area of the left side of the cervical spine, cervical spine and right side of the cervical spine. The quality is noted to be "pain" and similar to prior episodes. No radiation. Modifying factors- worsened by rotation of the head. Relieved by remaining still. Onset was yesterday and it is still present. It was gradual in onset and has been waxing/waning. No bladder dysfunction, bowel dysfunction, sensory loss or motor loss. Patient notes the possibility of an injury but denies injury to the head or chest. Mechanism of injury- (may have slept wrong per pt - woke 2 days ago with pain). No other injury. Similar symptoms previously: Recent medical care: The patient was seen recently at this facility in the emergency department. REVIEW OF SYSTEMS No fever, chills, depression, sore throat or cough. No difficulty breathing, chest pain, skin rash, abdominal pain or nausea. No vomiting, diarrhea, black stools, difficulty with urination or urinary frequency. No hematuria or bloody stools. All systems otherwise negative, except as recorded above. PAST HISTORY Flank Pain. Hypertension. Myocardial Infarction. Heart Disease. UTI - Urinary Tract Infection. Gallstone(s). Gastroesophageal Reflux Disease. Rectal Bleed. Vomiting. Hypothyroidism. Gastritis. Anxiety Reaction. Atypical Chest Pain. Diarrhea. Abdominal Pain. Epistaxis. Pituitary adenoma. Atrial Fibrillation. Gastroenteritis. Foot Fracture. Brain Tumor. Diabetes Mellitus. SURGERIES: Ankle surgery. Appendectomy. Brain surgery for tumor removal 2014. Cholecystectomy. Hysterectomy. Jaw surgery. Knee Surgery. Vein stripping bilateral legs. SOCIAL HISTORY Never smoker. Is a local resident. ADDITIONAL NOTES The nursing notes have been reviewed. PHYSICAL EXAM Vital Signs: 01/29/2017 07:53 BP: 128/57. HR: 80. RR: 16. O2 saturation: 95%. Temp: 99.7 F. Appearance: Alert. Patient in moderate distress. HEENT: Normal external inspection. Eyes: No pale conjunctivae. ENT: Pharynx normal. No pharyngeal erythema or tonsillar exudate. Neck: Normal inspection. Pain in the neck upon movement. No vertebral tenderness. Soft tissue tenderness (superficial / muscular tenderness). No nuchal rigidity. Negative Brudzinski's sign. CVS: Normal heart rate and rhythm. Pulses normal. Respiratory: No respiratory distress. Breath sounds normal. Abdomen: Normal inspection. Soft and nontender. Back: Normal inspection. No tenderness. Painless ROM. Skin: Skin warm and dry. Normal skin color. Normal skin turgor. Extremities: Extremities exhibit normal ROM. Extremities nontender. Neuro: Oriented X 3. Abnormal mood/affect. No motor deficit. No sensory deficit. Reflexes normal. LABS, X-RAYS, AND EKG C-Spine X-rays: (IMPRESSION: DONE YESTERDAY AT [facility] ED 1. Spondylosis C4-5, C5-6, and C6-7.). Views: 3 view C-spine series. Technique: good. The X-rays were interpreted by the radiologist. PROGRESS AND PROCEDURES Course of Care: Ativan 1mg IM given. Zofran 4 mg ODT PO given. Morphine 4 mg IM given. Clear muscular tenderness. Pt very anxious appearing. Not clinically c/w cord compression or spinal / epidural infectious process (no fever or systemic symptoms now). Pt prescribed baclofen yesterday, but never filled the Rx. X-rays yesterday did not reveal any acute abnormality. No bleeding diathesis. 09:01 01/29/17. Patient is stable. Physical exam findings are improved. Symptoms much better. Patient/family counseled. Old ED records reviewed. Patient has had multiple ED visits. Disposition: Discharged. Condition: stable and improved. CLINICAL IMPRESSION Acute cervical strain. INSTRUCTIONS Apply ice. Warnings: SEDATIVE MEDICATION: You were given sedative medication during your visit. Do not drive or operate dangerous machinery. CONTROLLED SUBSTANCE WARNINGS. GENERAL WARNINGS: Return or contact your physician immediately if your condition worsens or changes unexpectedly, if not improving as expected, or if other problems arise. Your Current Medications: CONTINUE TAKING THE FOLLOWING MEDICATIONS: Acetaminophen Oral. Dicyclomine 10 mg*. Docusate Sodium Oral. Gabapentin Oral. Hydrocortisone Oral. Insulin Aspart Subcutaneous. Lactulose Oral. Levothyroxine Sodium Oral. Lisinopril Oral. Metformin*. Metoprolol tartrate 25 mg 1/2 tablet BID*. Multivitamins Oral. Mupirocin*. Nitroglycerin ER Oral. Ondansetron Oral. Pantoprazole*. Percocet*. Pravastatin*. Warfarin Sodium Oral. Follow-up: Follow up with your doctor Chely (Dr. Eldrdige' partner) at the [facility] in [place] at 1:45 pm today - please try and arrive about 10 min early today. (Electronically signed by New Hussein DO 01/30/2017 20:59)
--- NOTE | 2017-01-29 09:11 | ED ORDER SUMMARY ---
..... Patient: SAM MEYERS OrderSheet [facility] VisitID: [id number] [address] [place] [address] 71y, F Registration Date/Time: 01/29/2017 ORDER SHEET Weight: 90.7 kg (estimated) Allergies: Amoxicillin, Aredia, Avandia, Bactroban, Cephalexin, Codeine, CONTRAST DYE, Dilaudid, Doxycycline, Ibuprofen, Iodine, Macrobid, NSAIDs, Penicillin, Septra, Sulfa Antibiotics, Zithromax GENERAL ORDERS: MEDICATION ORDERS: Ativan IM 1 mg (HIGH ALERT MEDICATION, NOW) (08:12 01/29/2017 [facility]) ([facility] Morphine IM 4 mg (NOW) (08:01/29/2017 [facility]) (8[facility] Zo[facility]DT PO 4 [facility] (NOW) [facility] (8:[facility]) IV FLUIDS: ORDER SHEET NOTES: [Electronically signed by Aleena Trerell (10:30 01/29/2017)] [Electronically signed by New Hussein DO (20:59 01/30/2017)] [Electronically locked/signed by Aleena Terrell (10:30 01/29/2017)]
--- NOTE | 2017-01-29 09:11 | ED NURSING NOTES ---
Clinical Report - Nurses [facility] [address] [place] [address] 01/29/2017 7:47 [id number] Triage time 0750. Acuity: LEVEL 4. Chief Complaint: HEADACHE and (neck pain). Alert. No acute distress. --07:56 Aleena Terrell 07:53 01/29/17. BP: 128/57. HR: 80. RR: 16. O2 saturation: 95%. Temp: 99.7 F. Pain level now 05/25. --07:56 Aleena Terrell. Weight: 90.7 kg estimated. Height/Length: 66 inches Per Patient. BMI: 32.3. --07:52 Aleena Terrell. Medications Acetaminophen Oral. Dicyclomine 10 mg. Docusate Sodium Oral. Gabapentin Oral. Hydrocortisone Oral. Insulin Aspart Subcutaneous. Lactulose Oral. Levothyroxine Sodium Oral. Lisinopril Oral. Metformin. Metoprolol tartrate 25 mg 1/2 tablet BID. Multivitamins Oral. Mupirocin. Nitroglycerin ER Oral. Ondansetron Oral. Pantoprazole. Percocet. Pravastatin. Warfarin Sodium Oral. --07:54 Aleena Terrell. Allergies Amoxicillin. Aredia. Avandia. Bactroban. Cephalexin. Codeine. CONTRAST DYE. Dilaudid. Doxycycline. Ibuprofen. Iodine. Macrobid. NSAIDs. Penicillin. Septra. Sulfa Antibiotics. Zithromax. --07:54 Aleena Terrell. History Arrived by EMS. Historian: EMS and patient. ( Pt seen here yesterday for same, was given rx for baclofen). 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 SOCIAL HX: Never smoker. FALL RISK ASSESSMENT: Fall risk assessment completed. No fall risk identified. NUTRITIONAL RISK ASSESSMENT: The nutritional risk assessment revealed no deficiencies. FUNCTIONAL ASSESSMENT: Functional assessment: no impairments noted. LEARNING NEEDS ASSESSMENT: The learning needs assessment revealed no barriers. SKIN INTEGRITY ASSESSMENT: Skin integrity risk assessment completed. No skin integrity risk identified. --07:56 Aleena Terrell. PROBLEMS: Cervical Strain. Flank Pain. Myocardial Infarction. Hypertension. Heart Disease. UTI - Urinary Tract Infection. Gallstone(s). Gastroesophageal Reflux Disease. Rectal Bleed. Vomiting. Hypothyroidism. Gastritis. Anxiety Reaction. Atypical Chest Pain. Diarrhea. Abdominal Pain. Epistaxis. Pituitary adenoma. Atrial Fibrillation. Gastroenteritis. Foot Fracture. Brain Tumor. Diabetes Mellitus. --07:55 Aleena Terrell. ADDITIONAL SURGERIES: Ankle surgery. Appendectomy. Brain surgery for tumor removal 2014. Cholecystectomy. Hysterectomy. Jaw surgery. Knee Surgery. Vein stripping bilateral legs. --07:55 Aleena Terrell. Interventions To treatment room. --07:56 Aleena Terrell. PHYSICAL ASSESSMENT To room via stretcher. GENERAL / NEURO / PSYCH: Alert. Oriented X 4. She is awake, shows no apparent trauma, is oriented, has poor eye contact and exhibits poor consolability. She appears withdrawn. Speech within normal limits. HEENT: No facial asymmetry noted. Pupils equal, round and reactive to light. RESPIRATORY: Respirations not labored. Breath sounds within normal limits. CVS: Capillary refill less than 2 seconds. GI / : Abdomen soft and nontender. SKIN: Skin is warm and dry. --07:58 Aleena Terrell. NURSING PROGRESS NOTES Reassurance given. Call light placed in reach. Side rails up x 2. Bed placed in lowest position. Brakes of bed on. Patient ready for evaluation- chart flagged. --07:58 Aleena Terrell 08:27 01/29/2017 Ativan (LORazepam) IM 1 mg given. Given in the right gluteus brittanie. Allergies verified, confirmed 5 rights and sedative warning given to the patient. --08:27 Aleena Terrell 08:27 01/29/2017 Morphine (Morphine Sulfate (PF)) IM 4 mg given. Given in the right gluteus brittanie. Allergies verified, confirmed 5 rights and sedative warning given to the patient. --08:27 Aleena Terrell 08:27 01/29/2017 Zofran ODT (Ondansetron) PO 4 mg given. Allergies verified and confirmed 5 rights. --08:27 Aleena Terrell Reassessment after medication administered. She is calm and has had no adverse reaction. Overall patient status is improved- she states feels better. --10:15 Aleena Terrell. DISPOSITION / DISCHARGE Departure time: 1010. Condition at departure: improved and stable. No learning barriers present. Discharge instructions provided and reviewed with the patient and spouse. Patient and spouse verbalized understanding. Written instructions provided in Mexican. The patient was discharged by the physician. She was discharged home and accompanied by spouse. She left the Emergency Department in a wheelchair and via private vehicle. Spouse driving. --10:16 Aleena Terrell 10:15 01/29/17. BP: 126/66. HR: 72. RR: 18. O2 saturation: 96%. Pain level now 510. --10:16 Aleena Terrell. Locked/Released at 01/29/2017 10:30 by Aleena Terrell,
--- NOTE | 2017-01-30 21:00 | ED DISCHARGE INSTRUCTIONS ---
Patient: SAM MEYERS General Instructions [facility] VisitID: [id number] [place] [address] 71y, F Registration Date/Time: 01/29/2017 Acute cervical strain. INSTRUCTIONS Apply ice. Warnings: SEDATIVE MEDICATION: You were given sedative medication during your visit. Do not drive or operate dangerous machinery. CONTROLLED SUBSTANCE WARNINGS. GENERAL WARNINGS: Return or contact your physician immediately if your condition worsens or changes unexpectedly, if not improving as expected, or if other problems arise. Your Current Medications: CONTINUE TAKING THE FOLLOWING MEDICATIONS: Acetaminophen Oral. Dicyclomine 10 mg*. Docusate Sodium Oral. Gabapentin Oral. Hydrocortisone Oral. Insulin Aspart Subcutaneous. Lactulose Oral. Levothyroxine Sodium Oral. Lisinopril Oral. Metformin*. Metoprolol tartrate 25 mg 1/2 tablet BID*. Multivitamins Oral. Mupirocin*. Nitroglycerin ER Oral. Ondansetron Oral. Pantoprazole*. Percocet*. Pravastatin*. Warfarin Sodium Oral. Follow-up: Follow up with your doctor Chely (Dr. Eldridge' partner) at the [facility] in [place] at 1:45 pm today - please try and arrive about 10 min early today. ADDITIONAL INFORMATION Neck Sprain Or Strain A sudden force that causes turning or bending of the neck (such as in a car accident) can stretch or tear muscles (strain) and ligaments (sprain) and cause neck pain. Sometimes neck pain occurs after a simple awkward movement. In either case, muscle spasm is commonly present and contributes to the pain. Unless you had a forceful physical injury (for example, a car accident or fall), X-rays are usually not ordered for the initial evaluation of neck pain. If pain continues and dose not respond to medical treatment, X-rays and other tests may be performed at a later time. Home care The following guidelines will help you care for your injury at home: You may feel more soreness and spasm the first few days after the injury. Reduce your activity level until symptoms begin to improve. When lying down, use a comfortable pillow that supports the head and keeps the spine in a neutral position. The position of the head should not be tilted forward or backward. Use ice packs (ice in a plastic bag, wrapped in a towel) to treat acute pain. Apply for 20 minutes every 24 hours during the first two days. Then, begin local heat (hot shower, hot bath or heating pad) andmassageto reduce muscle spasm. Some patients feel best alternating hot and cold treatments, or just staying with one method only. Do what feels the best to you and gives the most relief. You may use acetaminophen or ibuprofen to control pain, unless another pain medicine was prescribed.If you have chronic liver or kidney disease or ever had a stomach ulcer or GI bleeding, talk with your doctor before using these medicines. Follow-up care Follow up with your physician or this facility if your symptoms do not show signs of improvement. Physical therapy may be needed. If you had X-rays today, they didnt show any broken bones, breaks, or fractures. Sometimes fractures dont show up on the first X-ray. Bruises and sprains can sometimes hurt as much as a fracture. These injuries can take time to heal completely. If your symptoms dont improve or they get worse, talk with your doctor. You may need a repeat X-ray. When to seek medical care Get prompt medical attention if any of the following occur: Pain becomes worse or spreads into your arms Weakness or numbness in one or both arms Neck Pain [No Trauma] There are several possible causes of neck pain without injury: You can get a minor ligament sprain or muscle strain from a sudden minor neck movement. Sleeping with your neck in an awkward position can also cause this. Some persons respond to emotional stress by tensing the muscles of their neck, shoulders and upper back. Chronic spasm in these muscles can cause neck pain and sometimes headaches. Gradualwear and tearof the joints in the spine can cause degenerative arthritis.This can be a source of occasional or chronic neck pain. With aging or repeated small injuries to the neck, the spinal disks (the cushions between each spinal bone) may bulge and put pressure on a nearby spinal nerve. This causes tingling, pain or numbness spreading from the neck to the shoulder, arm or hand on one side. Acute neck pain usually gets better in one to two weeks. Neck pain related to disk disease, arthritis in the spinal joints or spinal stenosis (narrowing of the spinal canal) can become chronic and last for months or years. Unless you had a forceful physical injury (for example, a car accident or fall), X-rays are usually not ordered for the initial evaluation of neck pain. If pain continues and does not respond to medical treatment, x-rays and other tests may be performed at a later time. Home Care: Rest and relax the muscles. Use a comfortable pillow that supports the head and keeps the spine in a neutral position. The position of the head should not be tilted forward or backward. A rolled up towel may help for a custom fit. Some persons find relief with heat (hot shower, hot bath or heating pad) and massage, while others prefer cold packs (crushed or cubed ice in a plastic bag, wrapped in a towel) . Try both and use the method that feels best for 20 minutes several times a day. You may use acetaminophen (Tylenol) or ibuprofen (Motrin, Advil) to control pain, unless another medicine was prescribed. [ NOTE : If you have chronic liver or kidney disease or ever had a stomach ulcer or GI bleeding, talk with your doctor before using these medicines.] Follow Up with your physician or this facility if your symptoms do not show signs of improvement after one week. Physical therapy or further tests may be needed. [NOTE: A radiologist will review any X-rays or CT scans that were taken. We will notify you of any new findings that may affect your care.] Get Prompt Medical Attention if any of the following occur: Pain becomes worse or spreads into one or both arms Weakness or numbness in one or both arms Increasing headache Neck swelling, difficulty or painful swallowing Fever of 100.4F (38C) or higher, or as directed by your healthcare provider You have been given the following additional information: Neck Sprain/Strain Neck Pain, No Trauma (Electronically signed by New Hussein DO 01/30/2017 20:59)
--- NOTE | 2017-01-30 21:00 | ED MED RECONCILIATION SUMMARY ---
Patient: SAM MEYERS Medication Reconciliation Report [facility] VisitID: [id number] [address] [place] [address] 71y, F Registration Date/Time: 01/29/2017 Weight: 90.7 kg Height/Length: 66 in. BMI: 32.3 ALLERGIES: Amoxicillin, Aredia, Avandia, Bactroban, Cephalexin, Codeine, CONTRAST DYE, Dilaudid, Doxycycline, Ibuprofen, Iodine, Macrobid, NSAIDs, Penicillin, Septra, Sulfa Antibiotics, Zithromax The patient's Home Medications are listed below: CONTINUE TAKING THE FOLLOWING MEDICATIONS: Acetaminophen Oral Dicyclomine 10 mg Docusate Sodium Oral Gabapentin Oral Hydrocortisone Oral Insulin Aspart Subcutaneous Lactulose Oral Levothyroxine Sodium Oral Lisinopril Oral Metformin Metoprolol tartrate 25 mg 1/2 tablet BID Multivitamins Oral Mupirocin Nitroglycerin ER Oral Ondansetron Oral Pantoprazole Percocet Pravastatin Warfarin Sodium Oral The source(s) of the original Home Medication information: Not obtained. The following Medications were given to the patient in the Emergency Department: Ativan [IM] IM 1 mg, administered: 01/29/2017 8:27:00 AM Morphine [IM] IM 4 mg, administered: 01/29/2017 8:27:00 AM Zofran ODT [PO] PO 4 mg, administered: 01/29/2017 8:27:00 AM The following Medications were prescribed to the patient: None.
--- NOTE | 2017-01-30 21:00 | ED MAR SUMMARY ---
..... Medication Administration Record [facility] [address] [place] [address] Patient: SAM MEYERS Visit ID: [id number] 71y, F Weight: 90.7 kg Height/Length: 66 in BMI: 32.3 ALLERGIES: Amoxicillin, Aredia, Avandia, Bactroban, Cephalexin, Codeine, CONTRAST DYE, Dilaudid, Doxycycline, Ibuprofen, Iodine, Macrobid, NSAIDs, Penicillin, Septra, Sulfa Antibiotics, Zithromax Given 01/29/2017 Aleena Terrell, Medication Administered: ATIVAN [IM] (LORAZEPAM), Dose: 1 mg IM. Medication Ordered: Ativan IM 1 mg (HIGH ALERT MEDICATION, NOW). Given 01/29/2017 Aleena Terrell, Medication Administered: MORPHINE [IM] (MORPHINE SULFATE (PF)), Dose: 4 mg IM. Medication Ordered: Morphine IM 4 mg (NOW). Given 01/29/2017 Aleena Terrell, Medication Administered: ZOFRAN ODT [PO] (ONDANSETRON), Dose: 4 mg PO. Medication Ordered: Zofran ODT PO 4 mg (NOW).
--- NOTE | 2017-01-30 21:00 | ED MAR SUMMARY ---
..... Medication Administration Record [facility] [address] [place] [address] Patient: SAM MEYERS Visit ID: [id number] 71y, F Weight: 90.7 kg Height/Length: 66 in BMI: 32.3 ALLERGIES: Amoxicillin, Aredia, Avandia, Bactroban, Cephalexin, Codeine, CONTRAST DYE, Dilaudid, Doxycycline, Ibuprofen, Iodine, Macrobid, NSAIDs, Penicillin, Septra, Sulfa Antibiotics, Zithromax Given 01/29/2017 Aleena Terrell, Medication Administered: ATIVAN [IM] (LORAZEPAM), Dose: 1 mg IM. Medication Ordered: Ativan IM 1 mg (HIGH ALERT MEDICATION, NOW). Given 01/29/2017 Aleena Terrell, Medication Administered: MORPHINE [IM] (MORPHINE SULFATE (PF)), Dose: 4 mg IM. Medication Ordered: Morphine IM 4 mg (NOW). Given 01/29/2017 Aleena Terrell, Medication Administered: ZOFRAN ODT [PO] (ONDANSETRON), Dose: 4 mg PO. Medication Ordered: Zofran ODT PO 4 mg (NOW).
--- NOTE | 2017-01-30 21:00 | ED MED RECONCILIATION SUMMARY ---
Patient: SAM MEYERS Medication Reconciliation Report [facility] VisitID: [id number] [address] [place] [address] 71y, F Registration Date/Time: 01/29/2017 Weight: 90.7 kg Height/Length: 66 in. BMI: 32.3 ALLERGIES: Amoxicillin, Aredia, Avandia, Bactroban, Cephalexin, Codeine, CONTRAST DYE, Dilaudid, Doxycycline, Ibuprofen, Iodine, Macrobid, NSAIDs, Penicillin, Septra, Sulfa Antibiotics, Zithromax The patient's Home Medications are listed below: CONTINUE TAKING THE FOLLOWING MEDICATIONS: Acetaminophen Oral Dicyclomine 10 mg Docusate Sodium Oral Gabapentin Oral Hydrocortisone Oral Insulin Aspart Subcutaneous Lactulose Oral Levothyroxine Sodium Oral Lisinopril Oral Metformin Metoprolol tartrate 25 mg 1/2 tablet BID Multivitamins Oral Mupirocin Nitroglycerin ER Oral Ondansetron Oral Pantoprazole Percocet Pravastatin Warfarin Sodium Oral The source(s) of the original Home Medication information: Not obtained. The following Medications were given to the patient in the Emergency Department: Ativan [IM] IM 1 mg, administered: 01/29/2017 8:27:00 AM Morphine [IM] IM 4 mg, administered: 01/29/2017 8:27:00 AM Zofran ODT [PO] PO 4 mg, administered: 01/29/2017 8:27:00 AM The following Medications were prescribed to the patient: None.
== END 2017-01-29 10:10 | disposition home or self-care (01) ==
LOC: ED SRH 07:47
DX: S16.1XXA Strain of muscle, fascia and tendon at neck level, initial encounter (principal); X58.XXXA Exposure to other specified factors, initial encounter; Y93.9 Activity, unspecified; Y92.9 Unspecified place or not applicable; Y99.9 Unspecified external cause status; I10 Essential (primary) hypertension; I25.2 Old myocardial infarction; K21.9 Gastro-esophageal reflux disease without esophagitis; E03.9 Hypothyroidism, unspecified; I48.91 Unspecified atrial fibrillation